=== PATIENT | male | born 1985 | race African-American/Black ===

== ENCOUNTER → 2017-12-14 11:10 | Outpatient (CLI) | payer BC, SELFPAY ==
[2017-12-14 12:06] LABS: Add Manual Diff / Slide Review NO; Basophils Percent Auto 0.3 % (0-2); Eosinophils Percent Auto 1.2 % (2-4); Hematocrit 44.1 % (41-53); Hemoglobin 15.6 g/dL (13.5-17.5); Lymphocytes Percent Auto 29.6 % (25-40); Mean Corpuscular HGB Conc 35.4 % (30-36); Mean Corpuscular Hemoglobin 30.2 PG (26-34); Mean Corpuscular Volume 85.2 fL (80-100); Monocytes Percent Auto 10.3 % (3-14); Neutrophils Absolute Auto 3200 /uL (3000-5900); Neutrophils Percent Auto 58.6 % (50-75); Platelet Count 266 X10^3/uL (150-400); Red Blood Cell Count 5.18 X10^6/uL (4.5-5.9); Red Cell Distribution Width 13.8 % (11.6-14.8); White Blood Cell Count 5.4 X10^3/uL (4.5-11.0)
[2017-12-14 12:23] LABS: Alanine Aminotransferase 76 IU/L (21-72); Albumin 5.1 g/dL (3.5-5.0); Albumin Globulin Ratio 1.5 (1.0-2.8); Alkaline Phosphatase 58 U/L (38-126); Aspartate Aminotransferase 42 IU/L (17-59); BUN Creatinine Ratio 15.6 (6-22); Bilirubin Total 0.9 mg/dL (0.2-1.3); Blood Urea Nitrogen 14 mg/dL (9-20); Calcium 10.3 mg/dL (8.4-10.2); Carbon Dioxide 27 mmol/L (22-32); Chloride 101 mmol/L (98-107); Cholesterol 274 mg/dL (140-199); Estimated Glomerular Filt Rate > 60.0 mL/min (>60); Globulin 3.3 g/dL (1.7-4.1); Glucose 93 mg/dL (70-100); HDL Cholesterol 62 mg/dL (40-60); HEMOLYSIS 17 (0-50); LDL Cholesterol Calculated 200 mg/dL (<100); Potassium 4.8 mmol/L (3.4-5.1); Sodium 142 mmol/L (137-145); Total Protein 8.4 g/dL (6.3-8.2); Triglycerides 58 mg/dL (35-150)
== END ==
PROVIDERS: PCP Family Medicine; Visit Provider Nurse Practitioner Family
DX: E78.00 Pure hypercholesterolemia, unspecified (principal)
CPT/HCPCS: 36415; 80053; 80061; 83036; 85025

== ENCOUNTER → 2018-04-03 07:25 | Outpatient (CLI) | payer BC, SELFPAY ==
[2018-04-03 08:52] LABS: Alanine Aminotransferase 66 IU/L (21-72); Albumin 4.8 g/dL (3.5-5.0); Albumin Globulin Ratio 1.4 (1.0-2.8); Alkaline Phosphatase 66 U/L (38-126); Aspartate Aminotransferase 44 IU/L (17-59); Bilirubin Total 0.9 mg/dL (0.2-1.3); Blood Urea Nitrogen 16 mg/dL (9-20); Carbon Dioxide 25 mmol/L (22-32); Chloride 102 mmol/L (98-107); Estimated Glomerular Filt Rate > 60.0 mL/min (>60); Globulin 3.5 g/dL (1.7-4.1); Glucose 96 mg/dL (70-100); HEMOLYSIS < 15 (0-50); Potassium 4.1 mmol/L (3.4-5.1); Sodium 139 mmol/L (137-145); Total Protein 8.3 g/dL (6.3-8.2)
[2018-04-03 08:57] LABS: Alanine Aminotransferase 62 IU/L (21-72); Albumin 4.8 g/dL (3.5-5.0); Albumin Globulin Ratio 1.4 (1.0-2.8); Alkaline Phosphatase 65 U/L (38-126); Aspartate Aminotransferase 44 IU/L (17-59); Bilirubin Total 0.9 mg/dL (0.2-1.3); Bilirubin Unconjugated 0.7 mg/dL (0.0-1.1); Cholesterol 226 mg/dL (140-199); Globulin 3.5 g/dL (1.7-4.1); HDL Cholesterol 45 mg/dL (40-60); HEMOLYSIS < 15 (0-50); LDL Cholesterol Calculated 162 mg/dL (<100); Total Protein 8.3 g/dL (6.3-8.2); Triglycerides 93 mg/dL (35-150)
[2018-04-03 09:07] LABS: Vitamin D 25 Hydroxy (D3) 29.2 ng/mL (30.0-100.0)
== END ==
PROVIDERS: Student in an Organized Health Care Education/Training Program; PCP Family Medicine; Visit Provider Family Medicine
DX: E55.9 Vitamin D deficiency, unspecified (principal); E78.5 Hyperlipidemia, unspecified; Z79.899 Other long term (current) drug therapy
CPT/HCPCS: 36415; 80053; 80061; 80076; 82306

== ENCOUNTER → 2018-04-13 09:23 | Outpatient (CLI) | payer BC, SELFPAY ==
--- NOTE | 2018-04-13 10:42 | PM.TREADMILL ---
Cardiac Stress Test Report Referral & Results Date Patient Seen: 04/13/18 Requesting provider: Nathaly Collado Indication: Chest pain, strong family history Rest ECG: Unremarkable Procedure Note: Today following both written and verbal informed consent, the patient was exercised according to a standard [facility]dal[facility] protocol. The patient exercised for a total of 14 min 3 sec achieving a maximum heart rate of 200. Patient's maximum systolic blood pressure was 220. This was an estimated 14.8 MET's. There are no ST segment changes Patient was somewhat quickly hypertensive but did not peak at hypertensive number Normal heart rate response to exercise Functional aerobic impairment rated-5% on the active scale Rare PVC identified in recovery Impression: No evidence of ischemia Better than average exercise capacity Suggested patient continue with primary prevention of coronary artery disease Please note: Actual ECG tracings can be found in the PACS system.
== END ==
PROVIDERS: Family Provider Family Medicine; PCP Family Medicine; Visit Provider Family Medicine
DX: R07.9 Chest pain, unspecified (principal); Z82.49 Family history of ischemic heart disease and other diseases of the circulatory system
CPT/HCPCS: 93016; 93017; 93018

== ENCOUNTER → 2018-10-25 13:03 | Outpatient (CLI) | payer BC, SELFPAY ==
[2018-10-25 13:34] LABS: Add Manual Diff / Slide Review NO; Basophils Absolute Auto 0 /uL (0-100); Basophils Percent Auto 0.3 % (0-2); Eosinophils Absolute Auto 100 /uL (0-450); Eosinophils Percent Auto 0.9 % (2-4); Hemoglobin 14.9 g/dL (13.5-17.5); Lymphocytes Absolute Auto 1600 /uL (1100-4500); Lymphocytes Percent Auto 22.3 % (25-40); Mean Corpuscular HGB Conc 34.7 % (30-36); Mean Corpuscular Hemoglobin 29.9 PG (26-34); Mean Corpuscular Volume 86.1 fL (80-100); Monocytes Absolute Auto 600 /uL (0-900); Monocytes Percent Auto 8.8 % (3-14); Neutrophils Absolute Auto 4700 /uL (1500-7000); Neutrophils Percent Auto 67.7 % (50-75); Platelet Count 266 X10^3/uL (150-400); Red Blood Cell Count 4.99 X10^6/uL (4.5-5.9); Red Cell Distribution Width 13.9 % (11.6-14.8)
[2018-10-25 13:55] LABS: Erythrocyte Sedimentation Rate 5 MM/HR (0-15)
[2018-10-25 13:57] LABS: Alanine Aminotransferase 48 IU/L (21-72); Albumin 4.8 g/dL (3.5-5.0); Albumin Globulin Ratio 1.6 (1.0-2.8); Alkaline Phosphatase 54 U/L (38-126); Aspartate Aminotransferase 34 IU/L (17-59); BUN Creatinine Ratio 15.6 (6-22); Blood Urea Nitrogen 14 mg/dL (9-20); Calcium 10.1 mg/dL (8.4-10.2); Carbon Dioxide 29 mmol/L (22-32); Chloride 98 mmol/L (98-107); Cholesterol 249 mg/dL (140-199); Estimated Glomerular Filt Rate > 60.0 mL/min (>60); Glucose 86 mg/dL (70-100); HDL Cholesterol 55 mg/dL (40-60); HEMOLYSIS < 15 (0-50); LDL Cholesterol Calculated 160 mg/dL (<100); Potassium 4.1 mmol/L (3.4-5.1); Sodium 138 mmol/L (137-145); Total Protein 7.8 g/dL (6.3-8.2); Triglycerides 168 mg/dL (35-150)
== END ==
PROVIDERS: Hospitalist; PCP Family Medicine; Visit Provider Family Medicine
DX: E78.5 Hyperlipidemia, unspecified (principal); R07.9 Chest pain, unspecified; R10.9 Unspecified abdominal pain; Z82.49 Family history of ischemic heart disease and other diseases of the circulatory system
CPT/HCPCS: 36415; 80053; 80061; 85025; 85651

== ENCOUNTER → 2021-07-28 10:47 | Outpatient (CLI) | payer BC, SELFPAY ==
[2021-07-28 12:43] LABS: Add Manual Diff / Slide Review NO; Basophils Absolute Auto 0 /uL (0-100); Basophils Percent Auto 0.5 % (0-2); Eosinophils Absolute Auto 100 /uL (0-450); Eosinophils Percent Auto 1.2 % (2-4); Hematocrit 45.2 % (41-53); Hemoglobin 15.4 g/dL (13.5-17.5); Lymphocytes Absolute Auto 1100 /uL (1100-4500); Mean Corpuscular Volume 88.3 fL (80-100); Monocytes Absolute Auto 500 /uL (0-900); Neutrophils Absolute Auto 4900 /uL (1500-7000); Neutrophils Percent Auto 74.3 % (50-75); Platelet Count 266 X10^3/uL (150-400); Red Blood Cell Count 5.12 X10^6/uL (4.5-5.9); Red Cell Distribution Width 13.6 % (11.6-14.8); White Blood Cell Count 6.6 X10^3/uL (4.5-11.0)
[2021-07-28 13:01] LABS: Alanine Aminotransferase 35 IU/L (<50); Albumin 4.9 g/dL (3.5-5.0); Albumin Globulin Ratio 1.4 (1.0-2.8); Alkaline Phosphatase 51 U/L (38-126); Aspartate Aminotransferase 37 IU/L (17-59); BUN Creatinine Ratio 18.3 (6-22); Bilirubin Total 0.9 mg/dL (0.2-1.3); Blood Urea Nitrogen 17 mg/dL (9-20); Calcium 9.8 mg/dL (8.4-10.2); Carbon Dioxide 31 mmol/L (22-32); Chloride 100 mmol/L (98-107); Cholesterol 272 mg/dL (140-199); Estimated Glomerular Filt Rate > 60 mL/min (>60); Globulin 3.5 g/dL (1.7-4.1); Glucose 90 mg/dL (70-100); HDL Cholesterol 65 mg/dL (40-60); HEMOLYSIS 18 (0-50); LDL Cholesterol Calculated 179 mg/dL (<100); Potassium 4.4 mmol/L (3.4-5.1); Sodium 137 mmol/L (137-145); Total Protein 8.4 g/dL (6.3-8.2); Triglycerides 138 mg/dL (35-150)
[2021-07-28 13:38] LABS: HIV 1 & 2 Ab/Ag 4th Gen Combo NEGATIVE (NEGATIVE)
[2021-07-28 14:31] LABS: Urine N gonorrhoeae NOT DETECTED
[2021-07-28 14:39] LABS: Urine Chlamydia NOT DETECTED
== END ==
PROVIDERS: PCP Family Medicine; Referring Provider Family Medicine; Visit Provider Family Medicine
DX: Z72.51 High risk heterosexual behavior (principal); E78.5 Hyperlipidemia, unspecified; I10 Essential (primary) hypertension
CPT/HCPCS: 36415; 80053; 80061; 85025; 87389; 87491; 87591

== ENCOUNTER → 2021-12-22 13:24 | Outpatient (CLI) | payer BC, SELFPAY ==
--- NOTE | 2021-12-22 13:26 | DI.MRI.S_ITS ---
PROCEDURE: MR KNEE LT WO CON INDICATIONS: Left knee pain TECHNIQUE: Noncontrast sagittal PD fast spin echo and T2 fast spin echo with fat saturation, sagittal 3-D FLASH with fat saturation; coronal T1 spin echo and PD fast spin echo with fat saturation, and axial PD fast spin echo with fat saturation through the knee. COMPARISON: None. FINDINGS: Image quality: Excellent. Menisci: Subtle signal involving posterior horn of medial meniscus is seen extending to inferior articulating surface concerning for very subtle oblique tear. Lateral meniscus is intact. abnormality The meniscal root ligaments appear intact. Cruciate ligaments: The anterior and posterior cruciate ligaments appear intact. Medial structures: The medial collateral ligament appears intact. The posterior oblique ligament, semimembranosus tendon insertions, oblique popliteal ligament, and meniscocapsular junction appear intact. Visualized portions of the pes anserinus tendons appear normal. No abnormal bursal fluid. Lateral structures: The lateral collateral ligament, long and short heads of the biceps femoris tendon appear intact. The popliteus tendon appears normal; the popliteofibular ligament appears intact. Iliotibial band appears normal. Anterior structures: The quadriceps and patellar tendons appear intact. Patellar alignment is normal. No femoral trochlear dysplasia or ventral trochlear prominence. No edema in the infrapatellar fat pad. Bones and cartilage: No bone marrow contusions or fractures. The cartilage of the medial and lateral femorotibial compartments, as well as the patellofemoral compartment, appears normal in thickness. Joint space: There is small knee joint fluid. No Hernandez's cyst. Normal appearing synovial plicae are incidentally noted. IMPRESSION: 1. Finding is concerning for subtle oblique tear involving posterior horn of medial meniscus extending to inferior articulating surface. No lateral meniscal tear. 2. Cruciate ligaments are intact. Medial and lateral collateral ligaments are grossly intact. 3. No marrow edema. No fracture or dislocation. Articulating cartilages are intact. Trace joint effusion, no gross loose bodies. Dictated by: Kvng Wagenr M.D. on 12/22/2021 at 16:46 Approved by: Kvng Wagner M.D. on 12/22/2021 at 16:48
== END ==
PROVIDERS: Family Provider Family Medicine; PCP Family Medicine; Referring Provider Family Medicine; Visit Provider Family Medicine
DX: M25.562 Pain in left knee (principal); G89.29 Other chronic pain; R26.2 Difficulty in walking, not elsewhere classified
CPT/HCPCS: 73721

== ENCOUNTER 2021-12-31 09:00 | Outpatient (RCR) | payer BC, SELFPAY ==
--- NOTE | 2021-08-04 18:31 | PT.OIE ---
Current Diagnoses Other chronic pain (08/04/21) Pain in left knee (08/04/21) Past Medical History (Last Updated 07/28/21 @ 13:28 by Bernard López DO) Chronic pain of left knee Chronic rhinitis Cystic acne Essential hypertension Gastroesophageal reflux disease without esophagitis (08/28/15) Hyperlipidemia (08/28/15) Lactose intolerance Pure hypercholesterolemia (08/28/15) Past Surgical History (Last Reviewed 10/25/18 @ 17:03 by Holli Mcdaniel MD) Status post hernia repair Visit Care Team Role Provider Type Bernard López DO Attending Provider Physician Family Provider Primary Care Provider Referring Provider Specialty: [facility] Address: [address] [place] [address], [facility] Email: Physical Therapy Initial Evaluation PT-OP-A Visit Information Start: 08/04/21 11:45 Freq: Status: Active Protocol: Document 08/04/21 16:53 [facility] (Rec: 08/04/21 18:31 [facility] [id number]) Out-Patient Physical Therapy Visit Information Visit Information Visit Type Initial Evaluation Visit Start Time 16:50 Visit Stop Time 17:40 Total Visit Minutes 50 Visit Number 1 Number of [employer] Visits 0 PT-OP-B Current Condition Start: 08/04/21 11:45 Freq: Status: Active Protocol: Document 08/04/21 16:53 [facility] (Rec: 08/04/21 18:31 [facility] [id number]) Current Condition History of Current Condition Current Complaints L knee pain History of Current Condition Pt reports [place] and his knee was killing him the next day. In May, he was so stiff and painful and couldn't barely move his knee and was sonny up . Pt reports a nusance pain in the back of his knee and has been clicking ant. He is up/ down 10 flights of stairs about 10x/day and has to run/ up/down. Pt reports figure 4 sit aggrevates his knee the most after 20-30 min of sitting. He wonders if hm sitting like that for the plane rides irritated the knee . Pt rides his pelaton pretty often, but hasn't recenlty d/t knee bothering him. Pt started riding in September. Pt denies swelling initially. Pt reprots it's been only the small bouts of time that it is really bad where he can't move it. Pt reports pain was about a 6/10 initially and had to do step to w/stairs for a while. He got back first week of June. that Pt leaves August 28. Pt reports shoulder surgery years ago but otherwise no other issues. Reports LBP that he sees chiro occ for and often LLE is always shorter and is corrected. Treatment Goals Patient/Caregiver Goals run up/down stairs w/o pain, be able to get into odd spots, avoid a catestrophic knee injury PT-OP-C Subjective Start: 08/04/21 11:45 Freq: Status: Active Protocol: Document 08/04/21 16:53 [facility] (Rec: 08/04/21 18:31 [facility] [id number]) Patient Questionnaires Lower Extremity Functional Scale LEFS Score 80 OP-PT Pain Assessment Location L knee Pain Location Details mostly post Intensity 5 Scale Used Numeric (0 - 10) Description Dull,With Movement Frequency Constant Variations/Patterns clicks/pops ant medially Other Pain Aggravating Factors pelaton sometimes, figure 4 sit, can hurt after activity Pain Alleviating Factors Cold,Medication PT-OP-D Balance Start: 08/04/21 11:45 Freq: Status: Active Protocol: Document 08/04/21 16:53 [facility] (Rec: 08/04/21 18:31 [facility] [id number]) Balance Tests Single Limb Standing Single Limb- Right >30 sec Single Limb- Left >30 sec w/lat shear of R hip& slight trunk lean PT-OP-F Manual Assessment Start: 08/04/21 11:45 Freq: Status: Active Protocol: Document 08/04/21 16:53 [facility] (Rec: 08/04/21 18:31 [facility] [id number]) Manual Assessments Soft Tissue Assessment Soft Tissue Mobility Assessment tenderness at one aspect of med jt line L w/heavy palpation, tight HS and calf Joint Mobility Assessment Joint Mobility Assessment R iliac crest higher, PSIS R Post, ER of femur on L>R, IR tibia B, pronated feet B, patella turned out L>R, tracks lat slightly L w/quad engagment, L foot turned out in standing slightly PT-OP-G Mobility & Gait Start: 08/04/21 11:45 Freq: Status: Active Protocol: Document 08/04/21 16:53 [facility] (Rec: 08/04/21 18:31 [facility] [id number]) OP Gait Assessment Comments Gait Comments pt has dec ant depression and post dep L side, inc trunk lat lean w/WB on LLE PT-OP-J Posture/Palpation/Skin Start: 08/04/21 11:45 Freq: Status: Active Protocol: Document 08/04/21 16:53 [facility] (Rec: 08/04/21 18:31 [facility] [id number]) Posture Evaluation [facility] Postural Classification System Lumbar Protective Mechanism Left AP 1 Lumbar Protective Mechanism Right AP 1 Lumbar Protective Mechanism Left PA 2 Lumbar Protective Mechanism Right PA 2 PT-OP-K Range of Motion Start: 08/04/21 11:45 Freq: Status: Active Protocol: Document 08/04/21 16:53 [facility] (Rec: 08/04/21 18:31 [facility] [id number]) Knee Goniometric Range of Motion Knee Right Flexion Active (degrees) 130 Extension Active (degrees) 0 Left Flexion Active (degrees) 126 Extension Active (degrees) 0 Comments discomfort w/flex ant med PT-OP-L Special Tests Start: 08/04/21 11:45 Freq: Status: Active Protocol: Document 08/04/21 16:53 [facility] (Rec: 08/04/21 18:31 [facility] [id number]) Special Tests Knee Special Tests Lilli Test Test Results neg no pain w/ext testing Vanessa's Test Results neg L Posterior Draw Test Results neg L Caesar Test Results B hip flexor & TFL moderate tightness, B mild quad tightness Straight Leg Raise Test Results about 70 deg B but starts feeling tightness around 45 deg on L Comments inc tightness w/DF B, dec tightness w/cervical flex Thessaly Test 20 Degrees Test Results neg L Thessaly Test 5 Degrees Test Results neg L Juan M's Test Test Results mild tightness Varus- 25 Degrees Test Results neg Valgus- 25 Degrees Test Results neg PT-OP-M Strength Start: 08/04/21 11:45 Freq: Status: Active Protocol: Document 08/04/21 16:53 [facility] (Rec: 08/04/21 18:31 [facility] [id number]) Hip Strength Hip Manual Muscle Testing Right Flexion (L2) 5 Normal Extension (S1) 5 Normal Abduction 5 Normal Adduction 5 Normal External Rotation 5 Normal Internal Rotation 5 Normal Left Flexion (L2) 4 Good Extension (S1) 5 Normal Abduction 5 Normal Adduction 5 Normal External Rotation 4- Good- Internal Rotation 4- Good- Comments pain w/rots; dec trunk stability w/hip ext testing Knee Strength Knee Manual Muscle Testing Right Flexion (S2) 5 Normal Extension (L3) 5 Normal Left Flexion (S2) 4 Good Extension (L3) 5 Normal Comments pain flex Ankle/Foot Strength Ankle and Foot Manual Muscle Testing Right Dorsiflexion (L4) 5 Normal Plantarflexion (S1) 5 Normal Left Dorsiflexion (L4) 5 Normal Plantarflexion (S1) 5 Normal Comments 20 heel raises B PT-OP-Q Treatments Start: 08/04/21 11:45 Freq: Status: Active Protocol: Document 08/04/21 16:53 [facility] (Rec: 08/04/21 18:31 [facility] [id number]) Self-Care/Home Management Treatment Education Other Education edu for doing calf stretch on step x30 sec and doing quad set into HS stretch on doorway w/pillow behind knee 10 sec hold then rest and repeat, edu re: findings re: subjective is consistant w/meniscus tear and the mild jt line tenderness could be indicitive of possible meniscus pathology, but no testingw as positive. He does have pelvis height discrepency which hew as educated on how this could be affecitng his landing mechanics and inc his pain. PT-OP-T Assessment and Plan Start: 08/04/21 11:45 Freq: Status: Active Protocol: Document 08/04/21 16:53 [facility] (Rec: 08/04/21 18:31 [facility] [id number]) Physical Therapy Assessment Rehab Potential Rehabilitation Potential Good Evaluation Complexity Number of Personal Factors/Comorbidities 1-2 Number of Body Systems Impaired 4 or More Clinical Presentation at Evaluation Stable Impairments Impairments Activity Tolerance,Balance, Functional Activities, Functional Mobility,Gait,Pain, Posture,ROM,Soft Tissue Mobility,Strength Goals balance Customer Supply Chain Analyst Goal (LTG) pt will be able to do SLS on LLE w/o lat lean or shear . LTG Duration 09/04/21 strength Short Term Goal (STG) Pt will be indep w/hEP STG Duration 08/17/21 Customer Supply Chain Analyst Goal (LTG) Pt will have at least 4/5 on LPM in all planes and 5/5 MMT w/rotations and hip flex w/o pain. LTG Duration 09/04/21 pain Fci Goal (LTG) Pt will report no knee pain w/ his typical activties including running, going up steps 2 at a time, jumping and sitting in figure 4 position LTG Duration 09/04/21 Assessment Summary Assessment Pt presents w/L knee pain that started in Apr w/o known causes besides travelling for 7 hours by plane in which he notes sitting in figure 4 position for extended time and since this now inc his pain, he believes this may have contributed to his pain starting. He has no history of knee pain, but does have history of back pain and leg length issues which he has seen a chiropractor for in the past. 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 He had dec stability on LLE in SLS w/ lat hip shear consistant w/his gait mechanics. He has ER of femur and that causes Er of patella likely contributing to pain. He would bneefit from skilled PT to work on mechanics of LLE to dec pain and imrpove function. Physical Therapy Plan Frequency and Duration Frequency of Treatment 2x/Week Duration of Treatment 1 month Plan of Care Start Date 08/04/21 Plan of Care End Date 09/04/21 Therapeutic Interventions Therapeutic Interventions Aquatic Therapy,Balance Training,Gait Training,Home Exercise Program,Joint Mobilizations,Manual Therapy, Neuromuscular Re-education, Patient/Caregiver Education, Self-Care/Home Management,Soft Tissue Mobilization,Taping, Therapeutic Activities, Therapeutic Exercises Modalities Cold Pack/Ice Massage,Electric Stimulation,Hot Packs, Infrared Therapy,Ultrasound Next Visit Focus/Plan Next Visit Plan circumfrential release of HS & calf, hip on axis, asses hip flex, innominate mobility, PNF ant & post dep, teach quad/ hip flexor stretch, SLS for HEP & squat and lunge
--- NOTE | 2021-08-04 18:31 | PT.OPPOC ---
Physical, Occupational & Speech Therapy At [facility] Current Diagnoses Other chronic pain (08/04/21) Pain in left knee (08/04/21) Visit Care Team Role Provider Type Bernard López DO Attending Provider Physician Family Provider Primary Care Provider Referring Provider Specialty: Family Practice Address: [address] [place] [address], [facility] Email: Plan Of Care PT-OP-T Assessment and Plan Start: 08/04/21 11:45 Freq: Status: Active Protocol: Document 08/04/21 16:53 [facility] (Rec: 08/04/21 18:31 [facility] [id number]) Physical Therapy Assessment Rehab Potential Rehabilitation Potential Good Evaluation Complexity Number of Personal Factors/Comorbidities 1-2 Number of Body Systems Impaired 4 or More Clinical Presentation at Evaluation Stable Impairments Impairments Activity Tolerance,Balance, Functional Activities, Functional Mobility,Gait,Pain, Posture,ROM,Soft Tissue Mobility,Strength Goals balance Intermediate Goal (LTG) pt will be able to do SLS on LLE w/o lat lean or shear . LTG Duration 09/04/21 strength Short Term Goal (STG) Pt will be indep w/hEP STG Duration 08/17/21 Intermediate Goal (LTG) Pt will have at least 4/5 on LPM in all planes and 5/5 MMT w/rotations and hip flex w/o pain. LTG Duration 09/04/21 pain Intermediate Goal (LTG) Pt will report no knee pain w/ his typical activties including running, going up steps 2 at a time, jumping and sitting in figure 4 position LTG Duration 09/04/21 Assessment Summary Assessment Pt presents w/L knee pain that started in Apr w/o known causes besides travelling for 7 hours by plane in which he notes sitting in figure 4 position for extended time and since this now inc his pain, he believes this may have contributed to his pain starting. He has no history of knee pain, but does have history of back pain and leg length issues which he has seen a chiropractor for in the past. 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 He had dec stability on LLE in SLS w/ lat hip shear consistant w/his gait mechanics. He has ER of femur and that causes Er of patella likely contributing to pain. He would bneefit from skilled PT to work on mechanics of LLE to dec pain and imrpove function. Physical Therapy Plan Frequency and Duration Frequency of Treatment 2x/Week Duration of Treatment 1 month Plan of Care Start Date 08/04/21 Plan of Care End Date 09/04/21 Therapeutic Interventions Therapeutic Interventions Aquatic Therapy,Balance Training,Gait Training,Home Exercise Program,Joint Mobilizations,Manual Therapy, Neuromuscular Re-education, Patient/Caregiver Education, Self-Care/Home Management,Soft Tissue Mobilization,Taping, Therapeutic Activities, Therapeutic Exercises Modalities Cold Pack/Ice Massage,Electric Stimulation,Hot Packs, Infrared Therapy,Ultrasound Next Visit Focus/Plan Next Visit Plan circumfrential release of HS & calf, hip on axis, asses hip flex, innominate mobility, PNF ant & post dep, teach quad/ hip flexor stretch, SLS for HEP & squat and lunge Plan of Care Dates Plan of Care Start Date 08/04/21 Plan of Care End Date 09/04/21 Electronically Signed by: Fannie Sinclair, PT 08/04/21 [id number] If you are in agreement with this Plan of Care, please return a signed and dated copy. I have reviewed this Plan of Care and certify that the skilled therapy services above are required to meet the patient?s needs. Physician Signature Date Printed Name and Credentials Clinical Instructor Signature Printed Name and Credentials
--- NOTE | 2021-08-06 18:17 | PT.OTN ---
Current Diagnoses Other chronic pain (08/06/21) Pain in left knee (08/06/21) Physical Therapy Treatment Note PT-OP-A Visit Information Start: 08/04/21 11:45 Freq: Status: Active Protocol: Document 08/06/21 16:04 [facility] (Rec: 08/06/21 18:17 [facility] [id number]) Out-Patient Physical Therapy Visit Information Visit Information Visit Type Treatment Note Visit Start Time 16:50 Visit Stop Time 17:30 Total Visit Minutes 40 Visit Number 2 Number of EDUCATION NURSE Visits 0 PT-OP-B Current Condition Start: 08/04/21 11:45 Freq: Status: Active Protocol: Document 08/04/21 16:53 [facility] (Rec: 08/04/21 18:31 [facility] [id number]) Current Condition History of Current Condition Current Complaints L knee pain History of Current Condition Pt reports [place] and his knee was killing him the next day. In May, he was so stiff and painful and couldn't barely move his knee and was sonny up . Pt reports a nusance pain in the back of his knee and has been clicking ant. He is up/ down 10 flights of stairs about 10x/day and has to run/ up/down. Pt reports figure 4 sit aggrevates his knee the most after 20-30 min of sitting. He wonders if hm sitting like that for the plane rides irritated the knee . Pt rides his pelaton pretty often, but hasn't recenlty d/t knee bothering him. Pt started riding in September. Pt denies swelling initially. Pt reprots it's been only the small bouts of time that it is really bad where he can't move it. Pt reports pain was about a 6/10 initially and had to do step to w/stairs for a while. He got back first week of June. that Pt leaves August 28. Pt reports shoulder surgery years ago but otherwise no other issues. Reports LBP that he sees chiro occ for and often LLE is always shorter and is corrected. Treatment Goals Patient/Caregiver Goals run up/down stairs w/o pain, be able to get into odd spots, avoid a catestrophic knee injury PT-OP-C Subjective Start: 08/04/21 11:45 Freq: Status: Active Protocol: Document 08/06/21 16:04 [facility] (Rec: 08/06/21 18:17 [facility] [id number]) OP-PT Subjective Patient Comments Patient Comments pt saw chiro today who worked on hips and did laser on knee PT-OP-D Balance Start: 08/04/21 11:45 Freq: Status: Active Protocol: Document 08/04/21 16:53 [facility] (Rec: 08/04/21 18:31 [facility] [id number]) Balance Tests Single Limb Standing Single Limb- Right >30 sec Single Limb- Left >30 sec w/lat shear of R hip& slight trunk lean PT-OP-F Manual Assessment Start: 08/04/21 11:45 Freq: Status: Active Protocol: Document 08/04/21 16:53 [facility] (Rec: 08/04/21 18:31 [facility] [id number]) Manual Assessments Soft Tissue Assessment Soft Tissue Mobility Assessment tenderness at one aspect of med jt line L w/heavy palpation, tight HS and calf Joint Mobility Assessment Joint Mobility Assessment R iliac crest higher, PSIS R Post, ER of femur on L>R, IR tibia B, pronated feet B, patella turned out L>R, tracks lat slightly L w/quad engagment, L foot turned out in standing slightly PT-OP-G Mobility & Gait Start: 08/04/21 11:45 Freq: Status: Active Protocol: Document 08/04/21 16:53 [facility] (Rec: 08/04/21 18:31 [facility] [id number]) OP Gait Assessment Comments Gait Comments pt has dec ant depression and post dep L side, inc trunk lat lean w/WB on LLE PT-OP-J Posture/Palpation/Skin Start: 08/04/21 11:45 Freq: Status: Active Protocol: Document 08/04/21 16:53 [facility] (Rec: 08/04/21 18:31 [facility] [id number]) Posture Evaluation [facility] Postural Classification System Lumbar Protective Mechanism Left AP 1 Lumbar Protective Mechanism Right AP 1 Lumbar Protective Mechanism Left PA 2 Lumbar Protective Mechanism Right PA 2 PT-OP-K Range of Motion Start: 08/04/21 11:45 Freq: Status: Active Protocol: Document 08/04/21 16:53 [facility] (Rec: 08/04/21 18:31 [facility] [id number]) Knee Goniometric Range of Motion Knee Right Flexion Active (degrees) 130 Extension Active (degrees) 0 Left Flexion Active (degrees) 126 Extension Active (degrees) 0 Comments discomfort w/flex ant med PT-OP-L Special Tests Start: 08/04/21 11:45 Freq: Status: Active Protocol: Document 08/04/21 16:53 [facility] (Rec: 08/04/21 18:31 [facility] [id number]) Special Tests Knee Special Tests Lilli Test Test Results neg no pain w/ext testing Vanessa's Test Results neg L Posterior Draw Test Results neg L Caesar Test Results B hip flexor & TFL moderate tightness, B mild quad tightness Straight Leg Raise Test Results about 70 deg B but starts feeling tightness around 45 deg on L Comments inc tightness w/DF B, dec tightness w/cervical flex Thessaly Test 20 Degrees Test Results neg L Thessaly Test 5 Degrees Test Results neg L Juan M's Test Test Results mild tightness Varus- 25 Degrees Test Results neg Valgus- 25 Degrees Test Results neg PT-OP-M Strength Start: 08/04/21 11:45 Freq: Status: Active Protocol: Document 08/04/21 16:53 [facility] (Rec: 08/04/21 18:31 [facility] [id number]) Hip Strength Hip Manual Muscle Testing Right Flexion (L2) 5 Normal Extension (S1) 5 Normal Abduction 5 Normal Adduction 5 Normal External Rotation 5 Normal Internal Rotation 5 Normal Left Flexion (L2) 4 Good Extension (S1) 5 Normal Abduction 5 Normal Adduction 5 Normal External Rotation 4- Good- Internal Rotation 4- Good- Comments pain w/rots; dec trunk stability w/hip ext testing Knee Strength Knee Manual Muscle Testing Right Flexion (S2) 5 Normal Extension (L3) 5 Normal Left Flexion (S2) 4 Good Extension (L3) 5 Normal Comments pain flex Ankle/Foot Strength Ankle and Foot Manual Muscle Testing Right Dorsiflexion (L4) 5 Normal Plantarflexion (S1) 5 Normal Left Dorsiflexion (L4) 5 Normal Plantarflexion (S1) 5 Normal Comments 20 heel raises B PT-OP-Q Treatments Start: 08/04/21 11:45 Freq: Status: Active Protocol: Document 08/06/21 16:04 [facility] (Rec: 08/06/21 18:17 [facility] [id number]) Therapeutic Exercises Standing Exercises gait at wall Side bilateral Reps/Minutes 10sec x2 quad stretch Standing Exercise Name w/glute activation Side bilateral Reps/Minutes 10sec x3 staying in hold SL Standing Exercise Name w/alt march Side left Comments in mirror focus on hip lunge Side bilateral Reps/Minutes 10 Comments cues for no lat shear of L hip squat Side bilateral Reps/Minutes 15 Comments cues for control & knee position Manual Therapy Treatment Soft Tissue Mobilization quad Body Location L & circumfrential Mobilization Type Rolling,Strumming Intensity/Depth Moderate Comments in caesar test position calf Body Location L Mobilization Type Myofascial Release,Rolling, Strumming Intensity/Depth Moderate Comments APs HS Body Location L med mostly & circumfrential Mobilization Type Myofascial Release,Rolling, Strumming Intensity/Depth Superficial Comments active HS stretch Joint Mobilizations sacrum Joint L Direction UPA FM innominate Joint L Direction IR FM hip Joint L on axis IR FM PT-OP-T Assessment and Plan Start: 08/04/21 11:45 Freq: Status: Active Protocol: Document 08/06/21 16:04 [facility] (Rec: 08/06/21 18:17 [facility] [id number]) Physical Therapy Assessment Goals balance Group Home Goal (LTG) pt will be able to do SLS on LLE w/o lat lean or shear . LTG Duration 09/04/21 strength Short Term Goal (STG) Pt will be indep w/hEP STG Duration 08/17/21 Group Home Goal (LTG) Pt will have at least 4/5 on LPM in all planes and 5/5 MMT w/rotations and hip flex w/o pain. LTG Duration 09/04/21 pain Group Home Goal (LTG) Pt will report no knee pain w/ his typical activties including running, going up steps 2 at a time, jumping and sitting in figure 4 position LTG Duration 09/04/21 Assessment Summary Assessment Pt had improved IR w/ mobilizations and improved quad mobility after manual, which will hopefully dec load and pain on knee. He did well with exercises but did require cues for no lat shear of L hip in uni exercises and posture Physical Therapy Plan Frequency and Duration Frequency of Treatment 2x/Week Duration of Treatment 1 month Plan of Care Start Date 08/04/21 Plan of Care End Date 09/04/21 Next Visit Focus/Plan Next Note Type Treatment Note Next Visit Plan review exercises, assess hip flex, PNF, hip abd & ext innominate mobility
--- NOTE | 2021-08-11 15:55 | PT-OP ANOTE ---
pt called re: no show and he noted he forgot and didn't see a text reminder about the appointment. He apologized re: no show. Informed of next 2 appts.
--- NOTE | 2021-08-20 12:12 | PT.OTN ---
Current Diagnoses Other chronic pain (08/20/21) Pain in left knee (08/20/21) Physical Therapy Treatment Note PT-OP-A Visit Information Start: 08/04/21 11:45 Freq: Status: Active Protocol: Document 08/20/21 09:01 [facility] (Rec: 08/20/21 09:46 AW [id number]) Out-Patient Physical Therapy Visit Information Visit Information Visit Type Treatment Note Visit Start Time 09:01 Visit Stop Time 09:43 Total Visit Minutes 42 Visit Number 3 Number of JIG BORE OPERATOR Visits 0 PT-OP-B Current Condition Start: 08/04/21 11:45 Freq: Status: Active Protocol: Document 08/04/21 16:53 [facility] (Rec: 08/04/21 18:31 [facility] [id number]) Current Condition History of Current Condition Current Complaints L knee pain History of Current Condition Pt reports he [place] to the [place] Apr 27 and his knee was killing him the next day. In May, he was so stiff and painful and couldn't barely move his knee and was sonny up . Pt reports a nusance pain in the back of his knee and has been clicking ant. He is up/ down 10 flights of stairs about 10x/day and has to run/ up/down. Pt reports figure 4 sit aggrevates his knee the most after 20-30 min of sitting. He wonders if hm sitting like that for the plane rides irritated the knee . Pt rides his pel[place] pretty often, but hasn't recenlty d/t knee bothering him. Pt started riding in September. Pt denies swelling initially. Pt reprots it's been only the small bouts of time that it is really bad where he can't move it. Pt reports pain was about a 6/10 initially and had to do step to w/stairs for a while. He got back first week of June. that Pt leaves August 28. Pt reports shoulder surgery years ago but otherwise no other issues. Reports LBP that he sees chiro occ for and often LLE is always shorter and is corrected. Treatment Goals Patient/Caregiver Goals run up/down stairs w/o pain, be able to get into odd spots, avoid a catestrophic knee injury PT-OP-C Subjective Start: 08/04/21 11:45 Freq: Status: Active Protocol: Document 08/20/21 09:01 [facility] (Rec: 08/20/21 09:46 AW [id number]) OP-PT Subjective Patient Comments Patient Comments Pt has been super active the past few weeks so symptoms have been slightly worse. Had massage yesterday. Still feels a pop in the front of the knee and pain behind the knee - often during transition from sit to stand, sometimes while walking PT-OP-D Balance Start: 08/04/21 11:45 Freq: Status: Active Protocol: Document 08/04/21 16:53 [facility] (Rec: 08/04/21 18:31 [facility] [id number]) Balance Tests Single Limb Standing Single Limb- Right >30 sec Single Limb- Left >30 sec w/lat shear of R hip& slight trunk lean PT-OP-F Manual Assessment Start: 08/04/21 11:45 Freq: Status: Active Protocol: Document 08/04/21 16:53 [facility] (Rec: 08/04/21 18:31 [facility] [id number]) Manual Assessments Soft Tissue Assessment Soft Tissue Mobility Assessment tenderness at one aspect of med jt line L w/heavy palpation, tight HS and calf Joint Mobility Assessment Joint Mobility Assessment R iliac crest higher, PSIS R Post, ER of femur on L>R, IR tibia B, pronated feet B, patella turned out L>R, tracks lat slightly L w/quad engagment, L foot turned out in standing slightly PT-OP-G Mobility & Gait Start: 08/04/21 11:45 Freq: Status: Active Protocol: Document 08/04/21 16:53 [facility] (Rec: 08/04/21 18:31 [facility] [id number]) OP Gait Assessment Comments Gait Comments pt has dec ant depression and post dep L side, inc trunk lat lean w/WB on LLE PT-OP-J Posture/Palpation/Skin Start: 08/04/21 11:45 Freq: Status: Active Protocol: Document 08/04/21 16:53 [facility] (Rec: 08/04/21 18:31 [facility] [id number]) Posture Evaluation [facility] Postural Classification System Lumbar Protective Mechanism Left AP 1 Lumbar Protective Mechanism Right AP 1 Lumbar Protective Mechanism Left PA 2 Lumbar Protective Mechanism Right PA 2 PT-OP-K Range of Motion Start: 08/04/21 11:45 Freq: Status: Active Protocol: Document 08/04/21 16:53 [facility] (Rec: 08/04/21 18:31 [facility] [id number]) Knee Goniometric Range of Motion Knee Right Flexion Active (degrees) 130 Extension Active (degrees) 0 Left Flexion Active (degrees) 126 Extension Active (degrees) 0 Comments discomfort w/flex ant med PT-OP-L Special Tests Start: 08/04/21 11:45 Freq: Status: Active Protocol: Document 08/04/21 16:53 [facility] (Rec: 08/04/21 18:31 [facility] [id number]) Special Tests Knee Special Tests Lilli Test Test Results neg no pain w/ext testing Vanessa's Test Results neg L Posterior Draw Test Results neg L Caesar Test Results B hip flexor & TFL moderate tightness, B mild quad tightness Straight Leg Raise Test Results about 70 deg B but starts feeling tightness around 45 deg on L Comments inc tightness w/DF B, dec tightness w/cervical flex Thessaly Test 20 Degrees Test Results neg L Thessaly Test 5 Degrees Test Results neg L Juan M's Test Test Results mild tightness Varus- 25 Degrees Test Results neg Valgus- 25 Degrees Test Results neg PT-OP-M Strength Start: 08/04/21 11:45 Freq: Status: Active Protocol: Document 08/04/21 16:53 [facility] (Rec: 08/04/21 18:31 [facility] [id number]) Hip Strength Hip Manual Muscle Testing Right Flexion (L2) 5 Normal Extension (S1) 5 Normal Abduction 5 Normal Adduction 5 Normal External Rotation 5 Normal Internal Rotation 5 Normal Left Flexion (L2) 4 Good Extension (S1) 5 Normal Abduction 5 Normal Adduction 5 Normal External Rotation 4- Good- Internal Rotation 4- Good- Comments pain w/rots; dec trunk stability w/hip ext testing Knee Strength Knee Manual Muscle Testing Right Flexion (S2) 5 Normal Extension (L3) 5 Normal Left Flexion (S2) 4 Good Extension (L3) 5 Normal Comments pain flex Ankle/Foot Strength Ankle and Foot Manual Muscle Testing Right Dorsiflexion (L4) 5 Normal Plantarflexion (S1) 5 Normal Left Dorsiflexion (L4) 5 Normal Plantarflexion (S1) 5 Normal Comments 20 heel raises B PT-OP-Q Treatments Start: 08/04/21 11:45 Freq: Status: Active Protocol: Document 08/20/21 09:01 AW (Rec: 08/20/21 09:46 AW [id number]) Therapeutic Exercises Sitting Exercises long sitting hip flexion Sitting Exercise Name long sitting hip flexion Side left Reps/Minutes up and over bolster back and forth Comments cued quad set, controlled hip flexion static HS stretch Sitting Exercise Name static HS stretch Side left Equipment Used std height chair Comments cued hip hinge, neutral ankle Standing Exercises dynamic warm up Standing Exercise Name dynamic warm up Side bilateral Reps/Minutes walking hip flex, HS stretch, rotation, heel walk, toe walk Comments advised dynamic warm up prior to activity quad stretch Standing Exercise Name w/glute activation Side bilateral Reps/Minutes 30 sec x3 staying in hold SL Standing Exercise Name w/alt march Side left Comments in mirror focus on hip; pt better able to self-correct for shear lunge Side bilateral Reps/Minutes 10 Comments cues for no lat shear of L hip squat Standing Exercise Name near full depth without increase in pain Side bilateral Reps/Minutes 15 Comments cues for control & knee position, glute firing Manual Therapy Treatment Soft Tissue Mobilization quad Body Location L & circumfrential Mobilization Type Rolling,Strumming Intensity/Depth Moderate Comments in caesar test position calf Body Location L Mobilization Type Myofascial Release,Rolling, Strumming Intensity/Depth Moderate Comments APs HS Body Location L med mostly & circumfrential Mobilization Type Myofascial Release,Rolling, Strumming Intensity/Depth Superficial Comments active HS stretch Joint Mobilizations hip Joint L on axis IR FM Self-Care/Home Management Treatment Education Other Education Educated pt on dynamic/active warmup before and static stretches after activity. Educated on need for home exercise to progress, including warm up, stretches, and strengthening. PT-OP-T Assessment and Plan Start: 08/04/21 11:45 Freq: Status: Active Protocol: Document 08/20/21 09:01 AW (Rec: 08/20/21 09:46 AW [id number]) Physical Therapy Assessment Goals balance Half-Way Goal (LTG) pt will be able to do SLS on LLE w/o lat lean or shear . LTG Duration 09/04/21 strength Short Term Goal (STG) Pt will be indep w/hEP STG Duration 08/17/21 Half-Way Goal (LTG) Pt will have at least 4/5 on LPM in all planes and 5/5 MMT w/rotations and hip flex w/o pain. LTG Duration 09/04/21 pain Aboriginal Education Worker Coordinator Goal (LTG) Pt will report no knee pain w/ his typical activties including running, going up steps 2 at a time, jumping and sitting in figure 4 position LTG Duration 09/04/21 Assessment Summary Assessment Educated pt on self-STM for quads, hamstrings, calf to reduce load on left knee. Educated pt extensively on dynamic warm ups prior to activity and benefits of dedicated HEP to improve LLE stength and stability. He was able to self-correct for lateral shear left hip using mirror for feedback today. Physical Therapy Plan Frequency and Duration Frequency of Treatment 2x/Week Duration of Treatment 1 month Plan of Care Start Date 08/04/21 Plan of Care End Date 09/04/21 Therapeutic Interventions Therapeutic Interventions Aquatic Therapy,Balance Training,Gait Training,Home Exercise Program,Joint Mobilizations,Manual Therapy, Neuromuscular Re-education, Patient/Caregiver Education, Self-Care/Home Management,Soft Tissue Mobilization,Taping, Therapeutic Activities, Therapeutic Exercises Modalities Cold Pack/Ice Massage,Electric Stimulation,Hot Packs, Infrared Therapy,Ultrasound Next Visit Focus/Plan Next Note Type Treatment Note
--- NOTE | 2021-08-25 11:16 | PT.OTN ---
Current Diagnoses Other chronic pain (08/25/21) Pain in left knee (08/25/21) Physical Therapy Treatment Note PT-OP-A Visit Information Start: 08/04/21 11:45 Freq: Status: Active Protocol: Document 08/25/21 07:29 [facility] (Rec: 08/25/21 11:16 [facility] [id number]) Out-Patient Physical Therapy Visit Information Visit Information Visit Type Treatment Note Visit Start Time 07:31 Visit Stop Time 08:15 Total Visit Minutes 44 Visit Number 4 Number of DIRECTOR RECORDS MANAGEMENT Visits 0 PT-OP-B Current Condition Start: 08/04/21 11:45 Freq: Status: Active Protocol: Document 08/04/21 16:53 [facility] (Rec: 08/04/21 18:31 [facility] [id number]) Current Condition History of Current Condition Current Complaints L knee pain History of Current Condition Pt reports [place] 27 and his knee was killing him the next day. In May, he was so stiff and painful and couldn't barely move his knee and was sonny up . Pt reports a nusance pain in the back of his knee and has been clicking ant. He is up/ down 10 flights of stairs about 10x/day and has to run/ up/down. Pt reports figure 4 sit aggrevates his knee the most after 20-30 min of sitting. He wonders if hm sitting like that for the plane rides irritated the knee . Pt rides his pelaton pretty often, but hasn't recenlty d/t knee bothering him. Pt started riding in September. Pt denies swelling initially. Pt reprots it's been only the small bouts of time that it is really bad where he can't move it. Pt reports pain was about a 6/10 initially and had to do step to w/stairs for a while. He got back first week of June. that Pt leaves August 28. Pt reports shoulder surgery years ago but otherwise no other issues. Reports LBP that he sees chiro occ for and often LLE is always shorter and is corrected. Treatment Goals Patient/Caregiver Goals run up/down stairs w/o pain, be able to get into odd spots, avoid a catestrophic knee injury PT-OP-C Subjective Start: 08/04/21 11:45 Freq: Status: Active Protocol: Document 08/25/21 07:29 [facility] (Rec: 08/25/21 11:16 [facility] [id number]) OP-PT Subjective Patient Comments Patient Comments pt reports no change PT-OP-D Balance Start: 08/04/21 11:45 Freq: Status: Active Protocol: Document 08/04/21 16:53 [facility] (Rec: 08/04/21 18:31 [facility] [id number]) Balance Tests Single Limb Standing Single Limb- Right >30 sec Single Limb- Left >30 sec w/lat shear of R hip& slight trunk lean PT-OP-F Manual Assessment Start: 08/04/21 11:45 Freq: Status: Active Protocol: Document 08/04/21 16:53 [facility] (Rec: 08/04/21 18:31 [facility] [id number]) Manual Assessments Soft Tissue Assessment Soft Tissue Mobility Assessment tenderness at one aspect of med jt line L w/heavy palpation, tight HS and calf Joint Mobility Assessment Joint Mobility Assessment R iliac crest higher, PSIS R Post, ER of femur on L>R, IR tibia B, pronated feet B, patella turned out L>R, tracks lat slightly L w/quad engagment, L foot turned out in standing slightly PT-OP-G Mobility & Gait Start: 08/04/21 11:45 Freq: Status: Active Protocol: Document 08/04/21 16:53 [facility] (Rec: 08/04/21 18:31 [facility] [id number]) OP Gait Assessment Comments Gait Comments pt has dec ant depression and post dep L side, inc trunk lat lean w/WB on LLE PT-OP-J Posture/Palpation/Skin Start: 08/04/21 11:45 Freq: Status: Active Protocol: Document 08/04/21 16:53 [facility] (Rec: 08/04/21 18:31 [facility] [id number]) Posture Evaluation Abdias Postural Classification System Lumbar Protective Mechanism Left AP 1 Lumbar Protective Mechanism Right AP 1 Lumbar Protective Mechanism Left PA 2 Lumbar Protective Mechanism Right PA 2 PT-OP-K Range of Motion Start: 08/04/21 11:45 Freq: Status: Active Protocol: Document 08/04/21 16:53 [facility] (Rec: 08/04/21 18:31 [facility] [id number]) Knee Goniometric Range of Motion Knee Right Flexion Active (degrees) 130 Extension Active (degrees) 0 Left Flexion Active (degrees) 126 Extension Active (degrees) 0 Comments discomfort w/flex ant med PT-OP-L Special Tests Start: 08/04/21 11:45 Freq: Status: Active Protocol: Document 08/04/21 16:53 [facility] (Rec: 08/04/21 18:31 [facility] [id number]) Special Tests Knee Special Tests Lilli Test Test Results neg no pain w/ext testing Vanessa's Test Results neg L Posterior Draw Test Results neg L Caesar Test Results B hip flexor & TFL moderate tightness, B mild quad tightness Straight Leg Raise Test Results about 70 deg B but starts feeling tightness around 45 deg on L Comments inc tightness w/DF B, dec tightness w/cervical flex Thessaly Test 20 Degrees Test Results neg L Thessaly Test 5 Degrees Test Results neg L Juan M's Test Test Results mild tightness Varus- 25 Degrees Test Results neg Valgus- 25 Degrees Test Results neg PT-OP-M Strength Start: 08/04/21 11:45 Freq: Status: Active Protocol: Document 08/04/21 16:53 [facility] (Rec: 08/04/21 18:31 [facility] [id number]) Hip Strength Hip Manual Muscle Testing Right Flexion (L2) 5 Normal Extension (S1) 5 Normal Abduction 5 Normal Adduction 5 Normal External Rotation 5 Normal Internal Rotation 5 Normal Left Flexion (L2) 4 Good Extension (S1) 5 Normal Abduction 5 Normal Adduction 5 Normal External Rotation 4- Good- Internal Rotation 4- Good- Comments pain w/rots; dec trunk stability w/hip ext testing Knee Strength Knee Manual Muscle Testing Right Flexion (S2) 5 Normal Extension (L3) 5 Normal Left Flexion (S2) 4 Good Extension (L3) 5 Normal Comments pain flex Ankle/Foot Strength Ankle and Foot Manual Muscle Testing Right Dorsiflexion (L4) 5 Normal Plantarflexion (S1) 5 Normal Left Dorsiflexion (L4) 5 Normal Plantarflexion (S1) 5 Normal Comments 20 heel raises B PT-OP-Q Treatments Start: 08/04/21 11:45 Freq: Status: Active Protocol: Document 08/25/21 07:29 [facility] (Rec: 08/25/21 11:16 [facility] [id number]) Manual Therapy Treatment Soft Tissue Mobilization calf Body Location L Mobilization Type Myofascial Release,Rolling, Strumming Intensity/Depth Moderate Comments APs HS Body Location med and lat mostly & circumfrential Mobilization Type Myofascial Release,Rolling, Strumming Intensity/Depth Moderate Comments active HS stretch Joint Mobilizations tibfib Direction PA FM L tibfem Direction PA FM & IR FM Self-Care/Home Management Treatment Education Other Education verbal review of exercises and written down activities w/ discussion on use for self management. Discussed w/pt re: icing for comfort also. PT-OP-T Assessment and Plan Start: 08/04/21 11:45 Freq: Status: Active Protocol: Document 08/25/21 07:29 [facility] (Rec: 08/25/21 11:16 [facility] [id number]) Physical Therapy Assessment Goals balance Prison Goal (LTG) pt will be able to do SLS on LLE w/o lat lean or shear . 08/25-improved w/cue and use of mirror LTG Duration 11/25/21 strength Short Term Goal (STG) Pt will be indep w/hEP STG Duration achieved Orthotics Prosthetics Technician Goal (LTG) Pt will have at least 4/5 on LPM in all planes and 5/5 MMT w/rotations and hip flex w/o pain. 08/25-no change LTG Duration 11/25 pain Orthotics Prosthetics Technician Goal (LTG) Pt will report no knee pain w/ his typical activties including running, going up steps 2 at a time, jumping and sitting in figure 4 position 08/25-no change LTG Duration 11/25/21 Assessment Summary Assessment pt has made limited progress d /t limited visits before he has to leave for work. he plans to returnt o PT in 2 months when he returns home. He had imrpoved knee flex and IR w/manual but does still get pain w/flex. He is indep w/ HEP at this time for current strength/flexiblity activities . Physical Therapy Plan Frequency and Duration Frequency of Treatment 1-2x/Week Duration of Treatment 3 months Plan of Care Start Date 08/25/21 Plan of Care End Date 11/25/21 Therapeutic Interventions Therapeutic Interventions Aquatic Therapy,Balance Training,Gait Training,Home Exercise Program,Joint Mobilizations,Manual Therapy, Neuromuscular Re-education, Patient/Caregiver Education, Self-Care/Home Management,Soft Tissue Mobilization,Taping, Therapeutic Activities, Therapeutic Exercises Modalities Cold Pack/Ice Massage,Electric Stimulation,Hot Packs, Infrared Therapy,Ultrasound Next Visit Focus/Plan Next Note Type Progress Note Next Visit Plan assess HEP, work manually on LLE restrictions
--- NOTE | 2021-08-25 11:16 | PT.OPPOC ---
Physical, Occupational & Speech Therapy At [facility] Current Diagnoses Other chronic pain (08/25/21) Pain in left knee (08/25/21) Visit Care Team Role Provider Type Bernard López DO Attending Provider Physician Family Provider Primary Care Provider Referring Provider Specialty: Family Practice Address: [address] [place] [address], [facility] Email: Plan Of Care PT-OP-T Assessment and Plan Start: 08/04/21 11:45 Freq: Status: Active Protocol: Document 08/25/21 07:29 [facility] (Rec: 08/25/21 11:16 [facility] [id number]) Physical Therapy Assessment Goals balance Group Home Goal (LTG) pt will be able to do SLS on LLE w/o lat lean or shear . 08/25-improved w/cue and use of mirror LTG Duration 11/25/21 strength Short Term Goal (STG) Pt will be indep w/hEP STG Duration achieved Emt Driver Goal (LTG) Pt will have at least 4/5 on LPM in all planes and 5/5 MMT w/rotations and hip flex w/o pain. 08/25-no change LTG Duration 11/25 pain Emt Driver Goal (LTG) Pt will report no knee pain w/ his typical activties including running, going up steps 2 at a time, jumping and sitting in figure 4 position 08/25-no change LTG Duration 11/25/21 Assessment Summary Assessment pt has made limited progress d /t limited visits before he has to leave for work. he plans to returnt o PT in 2 months when he returns home. He had imrpoved knee flex and IR w/manual but does still get pain w/flex. He is indep w/ HEP at this time for current strength/flexiblity activities . Physical Therapy Plan Frequency and Duration Frequency of Treatment 1-2x/Week Duration of Treatment 3 months Plan of Care Start Date 08/25/21 Plan of Care End Date 11/25/21 Therapeutic Interventions Therapeutic Interventions Aquatic Therapy,Balance Training,Gait Training,Home Exercise Program,Joint Mobilizations,Manual Therapy, Neuromuscular Re-education, Patient/Caregiver Education, Self-Care/Home Management,Soft Tissue Mobilization,Taping, Therapeutic Activities, Therapeutic Exercises Modalities Cold Pack/Ice Massage,Electric Stimulation,Hot Packs, Infrared Therapy,Ultrasound Next Visit Focus/Plan Next Note Type Progress Note Next Visit Plan assess HEP, work manually on LLE restrictions Plan of Care Dates Plan of Care Start Date 08/25/21 Plan of Care End Date 11/25/21 Electronically Signed by: Fannie Sinclair, PT 08/25/21 2160 If you are in agreement with this Plan of Care, please return a signed and dated copy. I have reviewed this Plan of Care and certify that the skilled therapy services above are required to meet the patient?s needs. Physician Signature Date Printed Name and Credentials Clinical Instructor Signature Printed Name and Credentials
--- NOTE | 2021-11-19 13:52 | PT.OTN ---
Current Diagnoses Other chronic pain (11/19/21) Pain in left knee (11/19/21) Physical Therapy Treatment Note PT-OP-A Visit Information Start: 08/04/21 11:45 Freq: Status: Active Protocol: Document 11/19/21 08:19 [facility] (Rec: 11/19/21 12:20 [facility] [id number]) Out-Patient Physical Therapy Visit Information Visit Information Visit Type Progress Note Visit Start Time 08:18 Visit Stop Time 09:03 Total Visit Minutes 45 Visit Number 5 Number of INTELLECTUAL PROPERTY LEGAL ASSISTANT Visits 0 PT-OP-B Current Condition Start: 08/04/21 11:45 Freq: Status: Active Protocol: Document 08/04/21 16:53 [facility] (Rec: 08/04/21 18:31 [facility] [id number]) Current Condition History of Current Condition Current Complaints L knee pain History of Current Condition Pt [place] and his knee was killing him the next day. In May, he was so stiff and painful and couldn't barely move his knee and was sonny up . Pt reports a nusance pain in the back of his knee and has been clicking ant. He is up/ down 10 flights of stairs about 10x/day and has to run/ up/down. Pt reports figure 4 sit aggrevates his knee the most after 20-30 min of sitting. He wonders if hm sitting like that for the plane rides irritated the knee . Pt rides his [place] pretty often, but hasn't recenlty d/t knee bothering him. Pt started riding in September. Pt denies swelling initially. Pt reprots it's been only the small bouts of time that it is really bad where he can't move it. Pt reports pain was about a 6/10 initially and had to do step to w/stairs for a while. He got back first week of June. that Pt leaves August 28. Pt reports shoulder surgery years ago but otherwise no other issues. Reports LBP that he sees chiro occ for and often LLE is always shorter and is corrected. Treatment Goals Patient/Caregiver Goals run up/down stairs w/o pain, be able to get into odd spots, avoid a catestrophic knee injury PT-OP-C Subjective Start: 08/04/21 11:45 Freq: Status: Active Protocol: Document 11/19/21 08:19 [facility] (Rec: 11/19/21 12:20 [facility] [id number]) OP-PT Subjective Patient Comments Patient Comments pt reports doing exercises on boat. Still having pain in knee PT-OP-D Balance Start: 08/04/21 11:45 Freq: Status: Active Protocol: Document 11/19/21 08:19 [facility] (Rec: 11/19/21 12:20 [facility] [id number]) Balance Tests Single Limb Standing Single Limb- Right >30 sec Single Limb- Left >30 sec but leans PT-OP-F Manual Assessment Start: 08/04/21 11:45 Freq: Status: Active Protocol: Document 08/04/21 16:53 [facility] (Rec: 08/04/21 18:31 [facility] [id number]) Manual Assessments Soft Tissue Assessment Soft Tissue Mobility Assessment tenderness at one aspect of med jt line L w/heavy palpation, tight HS and calf Joint Mobility Assessment Joint Mobility Assessment R iliac crest higher, PSIS R Post, ER of femur on L>R, IR tibia B, pronated feet B, patella turned out L>R, tracks lat slightly L w/quad engagment, L foot turned out in standing slightly PT-OP-G Mobility & Gait Start: 08/04/21 11:45 Freq: Status: Active Protocol: Document 08/04/21 16:53 [facility] (Rec: 08/04/21 18:31 [facility] [id number]) OP Gait Assessment Comments Gait Comments pt has dec ant depression and post dep L side, inc trunk lat lean w/WB on LLE PT-OP-J Posture/Palpation/Skin Start: 08/04/21 11:45 Freq: Status: Active Protocol: Document 08/04/21 16:53 [facility] (Rec: 08/04/21 18:31 [facility] [id number]) Posture Evaluation Abdias Postural Classification System Lumbar Protective Mechanism Left AP 1 Lumbar Protective Mechanism Right AP 1 Lumbar Protective Mechanism Left PA 2 Lumbar Protective Mechanism Right PA 2 PT-OP-K Range of Motion Start: 08/04/21 11:45 Freq: Status: Active Protocol: Document 11/19/21 08:19 [facility] (Rec: 11/19/21 12:20 [facility] [id number]) Knee Goniometric Range of Motion Knee Left Flexion Active (degrees) 138 Extension Active (degrees) 0 Comments discomfort w/flex post & ant slight discomfort w/ext PT-OP-L Special Tests Start: 08/04/21 11:45 Freq: Status: Active Protocol: Document 08/04/21 16:53 [facility] (Rec: 08/04/21 18:31 [facility] [id number]) Special Tests Knee Special Tests Lilli Test Test Results neg no pain w/ext testing Vanessa's Test Results neg L Posterior Draw Test Results neg L Caesar Test Results B hip flexor & TFL moderate tightness, B mild quad tightness Straight Leg Raise Test Results about 70 deg B but starts feeling tightness around 45 deg on L Comments inc tightness w/DF B, dec tightness w/cervical flex Thessaly Test 20 Degrees Test Results neg L Thessaly Test 5 Degrees Test Results neg L Juan M's Test Test Results mild tightness Varus- 25 Degrees Test Results neg Valgus- 25 Degrees Test Results neg PT-OP-M Strength Start: 08/04/21 11:45 Freq: Status: Active Protocol: Document 11/19/21 08:19 [facility] (Rec: 11/19/21 12:20 [facility] [id number]) Hip Strength Hip Manual Muscle Testing Right Flexion (L2) 5 Normal Extension (S1) 5 Normal Abduction 5 Normal Adduction 5 Normal External Rotation 5 Normal Internal Rotation 5 Normal Left Flexion (L2) 5 Normal Extension (S1) 5 Normal Abduction 5 Normal Adduction 5 Normal External Rotation 4+ Good+ Internal Rotation 5 Normal Comments pain w/ER; dec trunk stability w/hip ext testing Knee Strength Knee Manual Muscle Testing Right Flexion (S2) 5 Normal Extension (L3) 5 Normal Left Flexion (S2) 4 Good Extension (L3) 4+ Good+ Comments pain flex Ankle/Foot Strength Ankle and Foot Manual Muscle Testing Right Dorsiflexion (L4) 5 Normal Plantarflexion (S1) 5 Normal Left Dorsiflexion (L4) 5 Normal Plantarflexion (S1) 5 Normal Comments 20 heel raises B PT-OP-Q Treatments Start: 08/04/21 11:45 Freq: Status: Active Protocol: Document 11/19/21 08:19 [facility] (Rec: 11/19/21 12:20 [facility] [id number]) Manual Therapy Treatment Soft Tissue Mobilization adductors Body Location L Mobilization Type Rolling Intensity/Depth Moderate Body Position Hooklying quad Body Location L & circumfrential & along ITB Mobilization Type Rolling,Strumming Intensity/Depth Moderate Comments in caesar test position calf Body Location L Mobilization Type Myofascial Release,Rolling, Strumming Intensity/Depth Moderate Comments APs in knee flex Joint Mobilizations tibfem Direction IR L tib FM hip Joint L ER FM in hooklying PT-OP-T Assessment and Plan Start: 08/04/21 11:45 Freq: Status: Active Protocol: Document 11/19/21 08:19 [facility] (Rec: 11/19/21 12:20 [facility] [id number]) Physical Therapy Assessment Goals balance Program Director Scouting Goal (LTG) pt will be able to do SLS on LLE w/o lat lean or shear . 08/25-improved w/cue and use of mirror 11/19-can in mirror but not w/o LTG Duration 12/19 strength Short Term Goal (STG) Pt will be indep w/hEP STG Duration achieved Jail Goal (LTG) Pt will have at least 4/5 on LPM in all planes and 5/5 MMT w/rotations and hip flex w/o pain. 08/25-no change 11/19-improved overall LTG Duration 01/19 pain Program Director Scouting Goal (LTG) Pt will report no knee pain w/ his typical activties including running, going up steps 2 at a time, jumping and sitting in figure 4 position 08/25-no change 11/19-still sore w/up/down stairs for work and running on boat, figure 4 stilluncomfortable LTG Duration 02/18 Assessment Summary Assessment Pt was away for 3 months for work so has not attended PT. He does show improved ROM and some improved strength w/his exercises, but still does have knee pain that affects his ability to do his typical daily activities (work and exercise related and even sitting figure 4). He was encouraged to follow up w/MD re: possible MRI and ortho referral also. He would bneefit from resume of PT now that he has returned home to work on strength, stability and ROM. Physical Therapy Plan Frequency and Duration Frequency of Treatment 1-2x/Week Duration of Treatment 3 months Plan of Care Start Date 11/19/21 Plan of Care End Date 02/18/22 Therapeutic Interventions Therapeutic Interventions Aquatic Therapy,Balance Training,Gait Training,Home Exercise Program,Joint Mobilizations,Manual Therapy, Neuromuscular Re-education, Patient/Caregiver Education, Self-Care/Home Management,Soft Tissue Mobilization,Taping, Therapeutic Activities, Therapeutic Exercises Modalities Cold Pack/Ice Massage,Electric Stimulation,Hot Packs, Infrared Therapy,Ultrasound Next Visit Focus/Plan Next Note Type Treatment Note Next Visit Plan re-assess HEP, start working SL stability/strength, work manually on LLE restrictions
--- NOTE | 2021-11-19 13:52 | PT.OPPOC ---
Physical, Occupational & Speech Therapy At [facility] Current Diagnoses Other chronic pain (11/19/21) Pain in left knee (11/19/21) Visit Care Team Role Provider Type Doug López DO Attending Provider Physician Family Provider Primary Care Provider Referring Provider Specialty: Family Practice Address: [address] [place] [address], [facility] Email: Plan Of Care PT-OP-T Assessment and Plan Start: 08/04/21 11:45 Freq: Status: Active Protocol: Document 11/19/21 08:19 [facility] (Rec: 11/19/21 12:20 [facility] [id number]) Physical Therapy Assessment Goals balance [facility] Goal (LTG) pt will be able to do SLS on LLE w/o lat lean or shear . 08/25-improved w/cue and use of mirror 11/19-can in mirror but not w/o LTG Duration 12/19 strength Short Term Goal (STG) Pt will be indep w/hEP STG Duration achieved [facility] Goal (LTG) Pt will have at least 4/5 on LPM in all planes and 5/5 MMT w/rotations and hip flex w/o pain. 08/25-no change 11/19-improved overall LTG Duration 01/19 pain Granite Polisher Apprentice Goal (LTG) Pt will report no knee pain w/ his typical activties including running, going up steps 2 at a time, jumping and sitting in figure 4 position 08/25-no change 11/19-still sore w/up/down stairs for work and running on boat, figure 4 stilluncomfortable LTG Duration 02/18 Assessment Summary Assessment Pt was away for 3 months for work so has not attended PT. He does show improved ROM and some improved strength w/his exercises, but still does have knee pain that affects his ability to do his typical daily activities (work and exercise related and even sitting figure 4). He was encouraged to follow up w/MD re: possible MRI and ortho referral also. He would bneefit from resume of PT now that he has returned home to work on strength, stability and ROM. Physical Therapy Plan Frequency and Duration Frequency of Treatment 1-2x/Week Duration of Treatment 3 months Plan of Care Start Date 11/19/21 Plan of Care End Date 02/18/22 Therapeutic Interventions Therapeutic Interventions Aquatic Therapy,Balance Training,Gait Training,Home Exercise Program,Joint Mobilizations,Manual Therapy, Neuromuscular Re-education, Patient/Caregiver Education, Self-Care/Home Management,Soft Tissue Mobilization,Taping, Therapeutic Activities, Therapeutic Exercises Modalities Cold Pack/Ice Massage,Electric Stimulation,Hot Packs, Infrared Therapy,Ultrasound Next Visit Focus/Plan Next Note Type Treatment Note Next Visit Plan re-assess HEP, start working SL stability/strength, work manually on LLE restrictions Plan of Care Dates Plan of Care Start Date 11/19/21 Plan of Care End Date 02/18/22 Electronically Signed by: Fannie Sinclair, PT 11/19/21 [id number] If you are in agreement with this Plan of Care, please return a signed and dated copy. I have reviewed this Plan of Care and certify that the skilled therapy services above are required to meet the patient?s needs. Physician Signature Date Printed Name and Credentials Clinical Instructor Signature Printed Name and Credentials
--- NOTE | 2021-11-24 09:03 | PT.OTN ---
Current Diagnoses Other chronic pain (11/24/21) Pain in left knee (11/24/21) Physical Therapy Treatment Note PT-OP-A Visit Information Start: 08/04/21 11:45 Freq: Status: Active Protocol: Document 11/24/21 08:24 [facility] (Rec: 11/24/21 09:03 [facility] [id number]) Out-Patient Physical Therapy Visit Information Visit Information Visit Type Treatment Note Visit Start Time 08:16 Visit Stop Time 08:57 Total Visit Minutes 41 Visit Number 6 Number of CLOTH FOLDER MACHINE Visits 0 PT-OP-B Current Condition Start: 08/04/21 11:45 Freq: Status: Active Protocol: Document 08/04/21 16:53 [facility] (Rec: 08/04/21 18:31 [facility] [id number]) Current Condition History of Current Condition Current Complaints L knee pain History of Current Condition Pt reports [place] and his knee was killing him the next day. In May, he was so stiff and painful and couldn't barely move his knee and was sonny up . Pt reports a nusance pain in the back of his knee and has been clicking ant. He is up/ down 10 flights of stairs about 10x/day and has to run/ up/down. Pt reports figure 4 sit aggrevates his knee the most after 20-30 min of sitting. He wonders if hm sitting like that for the plane rides irritated the knee . Pt rides his pelaton pretty often, but hasn't recenlty d/t knee bothering him. Pt started riding in September. Pt denies swelling initially. Pt reprots it's been only the small bouts of time that it is really bad where he can't move it. Pt reports pain was about a 6/10 initially and had to do step to w/stairs for a while. He got back first week of June. that Pt leaves August 28. Pt reports shoulder surgery years ago but otherwise no other issues. Reports LBP that he sees chiro occ for and often LLE is always shorter and is corrected. Treatment Goals Patient/Caregiver Goals run up/down stairs w/o pain, be able to get into odd spots, avoid a catestrophic knee injury PT-OP-C Subjective Start: 08/04/21 11:45 Freq: Status: Active Protocol: Document 11/24/21 08:24 [facility] (Rec: 11/24/21 09:03 [facility] [id number]) OP-PT Subjective Patient Comments Patient Comments Pt reports he talked to MD office and get order for MRI1 PT-OP-D Balance Start: 08/04/21 11:45 Freq: Status: Active Protocol: Document 11/19/21 08:19 [facility] (Rec: 11/19/21 12:20 [facility] [id number]) Balance Tests Single Limb Standing Single Limb- Right >30 sec Single Limb- Left >30 sec but leans PT-OP-F Manual Assessment Start: 08/04/21 11:45 Freq: Status: Active Protocol: Document 08/04/21 16:53 [facility] (Rec: 08/04/21 18:31 [facility] [id number]) Manual Assessments Soft Tissue Assessment Soft Tissue Mobility Assessment tenderness at one aspect of med jt line L w/heavy palpation, tight HS and calf Joint Mobility Assessment Joint Mobility Assessment R iliac crest higher, PSIS R Post, ER of femur on L>R, IR tibia B, pronated feet B, patella turned out L>R, tracks lat slightly L w/quad engagment, L foot turned out in standing slightly PT-OP-G Mobility & Gait Start: 08/04/21 11:45 Freq: Status: Active Protocol: Document 08/04/21 16:53 [facility] (Rec: 08/04/21 18:31 [facility] [id number]) OP Gait Assessment Comments Gait Comments pt has dec ant depression and post dep L side, inc trunk lat lean w/WB on LLE PT-OP-J Posture/Palpation/Skin Start: 08/04/21 11:45 Freq: Status: Active Protocol: Document 08/04/21 16:53 [facility] (Rec: 08/04/21 18:31 [facility] [id number]) Posture Evaluation Abdias Postural Classification System Lumbar Protective Mechanism Left AP 1 Lumbar Protective Mechanism Right AP 1 Lumbar Protective Mechanism Left PA 2 Lumbar Protective Mechanism Right PA 2 PT-OP-K Range of Motion Start: 08/04/21 11:45 Freq: Status: Active Protocol: Document 11/19/21 08:19 [facility] (Rec: 11/19/21 12:20 [facility] [id number]) Knee Goniometric Range of Motion Knee Left Flexion Active (degrees) 138 Extension Active (degrees) 0 Comments discomfort w/flex post & ant slight discomfort w/ext PT-OP-L Special Tests Start: 08/04/21 11:45 Freq: Status: Active Protocol: Document 08/04/21 16:53 [facility] (Rec: 08/04/21 18:31 [facility] [id number]) Special Tests Knee Special Tests Lilli Test Test Results neg no pain w/ext testing Vanessa's Test Results neg L Posterior Draw Test Results neg L Caesar Test Results B hip flexor & TFL moderate tightness, B mild quad tightness Straight Leg Raise Test Results about 70 deg B but starts feeling tightness around 45 deg on L Comments inc tightness w/DF B, dec tightness w/cervical flex Thessaly Test 20 Degrees Test Results neg L Thessaly Test 5 Degrees Test Results neg L Juan M's Test Test Results mild tightness Varus- 25 Degrees Test Results neg Valgus- 25 Degrees Test Results neg PT-OP-M Strength Start: 08/04/21 11:45 Freq: Status: Active Protocol: Document 11/19/21 08:19 [facility] (Rec: 11/19/21 12:20 [facility] [id number]) Hip Strength Hip Manual Muscle Testing Right Flexion (L2) 5 Normal Extension (S1) 5 Normal Abduction 5 Normal Adduction 5 Normal External Rotation 5 Normal Internal Rotation 5 Normal Left Flexion (L2) 5 Normal Extension (S1) 5 Normal Abduction 5 Normal Adduction 5 Normal External Rotation 4+ Good+ Internal Rotation 5 Normal Comments pain w/ER; dec trunk stability w/hip ext testing Knee Strength Knee Manual Muscle Testing Right Flexion (S2) 5 Normal Extension (L3) 5 Normal Left Flexion (S2) 4 Good Extension (L3) 4+ Good+ Comments pain flex Ankle/Foot Strength Ankle and Foot Manual Muscle Testing Right Dorsiflexion (L4) 5 Normal Plantarflexion (S1) 5 Normal Left Dorsiflexion (L4) 5 Normal Plantarflexion (S1) 5 Normal Comments 20 heel raises B PT-OP-Q Treatments Start: 08/04/21 11:45 Freq: Status: Active Protocol: Document 11/24/21 08:24 [facility] (Rec: 11/24/21 09:03 [facility] [id number]) Gym Equipment Therapeutic Ball HS curls Ball Size/Color green Body Position Supine Reps/Duration 2x10 Therapeutic Exercises Standing Exercises SL Standing Exercise Name 1.RDL 2. SL squat Side bilateral Reps/Minutes 12 lunge Side bilateral Reps/Minutes 5 Comments cues for no lat shear of L hip squat Standing Exercise Name near full depth without increase in pain Side bilateral Reps/Minutes 8 Comments cues for control & knee position, glute firing Manual Therapy Treatment Soft Tissue Mobilization ITB Body Location L Mobilization Type Rolling,Strumming Intensity/Depth Moderate Body Position Supine quad Body Location L lat & quad tendon Mobilization Type Rolling,Strumming Intensity/Depth Moderate HS Body Location med Mobilization Type Myofascial Release,Rolling, Strumming Intensity/Depth Moderate Comments hooklying w/ap PT-OP-T Assessment and Plan Start: 08/04/21 11:45 Freq: Status: Active Protocol: Document 11/24/21 08:24 [facility] (Rec: 11/24/21 09:03 [facility] [id number]) Physical Therapy Assessment Goals balance Half-Way Goal (LTG) pt will be able to do SLS on LLE w/o lat lean or shear . 08/25-improved w/cue and use of mirror 11/19-can in mirror but not w/o LTG Duration 12/19 strength Short Term Goal (STG) Pt will be indep w/hEP STG Duration achieved Cut Off Saw Tender Metal Goal (LTG) Pt will have at least 4/5 on LPM in all planes and 5/5 MMT w/rotations and hip flex w/o pain. 08/25-no change 11/19-improved overall LTG Duration 01/19 pain Cut Off Saw Tender Metal Goal (LTG) Pt will report no knee pain w/ his typical activties including running, going up steps 2 at a time, jumping and sitting in figure 4 position 08/25-no change 11/19-still sore w/up/down stairs for work and running on boat, figure 4 stilluncomfortable LTG Duration 02/18 Assessment Summary Assessment Pt was able to go into full flex and ext today without discomfort but did note ant pain w/HS curls but it went away after the exercise. He had a lot of quad tightness that may be related to this pain. Physical Therapy Plan Frequency and Duration Frequency of Treatment 1-2x/Week Duration of Treatment 3 months Plan of Care Start Date 11/19/21 Plan of Care End Date 02/18/22 Next Visit Focus/Plan Next Note Type Treatment Note Next Visit Plan cont working SL stability/ strength, work manually on LLE restrictions
--- NOTE | 2021-11-26 09:51 | PT.OTN ---
Current Diagnoses Other chronic pain (11/26/21) Pain in left knee (11/26/21) Physical Therapy Treatment Note PT-OP-A Visit Information Start: 08/04/21 11:45 Freq: Status: Active Protocol: Document 11/26/21 09:05 [facility] (Rec: 11/26/21 09:51 [facility] [id number]) Out-Patient Physical Therapy Visit Information Visit Information Visit Type Treatment Note Visit Start Time 09:05 Visit Stop Time 09:45 Total Visit Minutes 40 Visit Number 7 Number of CHEMICAL DEPENDENCY NURSE Visits 0 PT-OP-B Current Condition Start: 08/04/21 11:45 Freq: Status: Active Protocol: Document 08/04/21 16:53 [facility] (Rec: 08/04/21 18:31 [facility] [id number]) Current Condition History of Current Condition Current Complaints L knee pain History of Current Condition Pt reports he [place] to the [place] Apr 27 and his knee was killing him the next day. In May, he was so stiff and painful and couldn't barely move his knee and was sonny up . Pt reports a nusance pain in the back of his knee and has been clicking ant. He is up/ down 10 flights of stairs about 10x/day and has to run/ up/down. Pt reports figure 4 sit aggrevates his knee the most after 20-30 min of sitting. He wonders if hm sitting like that for the plane rides irritated the knee . Pt rides his [place] pretty often, but hasn't recenlty d/t knee bothering him. Pt started riding in September. Pt denies swelling initially. Pt reprots it's been only the small bouts of time that it is really bad where he can't move it. Pt reports pain was about a 6/10 initially and had to do step to w/stairs for a while. He got back first week of June. that Pt leaves August 28. Pt reports shoulder surgery years ago but otherwise no other issues. Reports LBP that he sees chiro occ for and often LLE is always shorter and is corrected. Treatment Goals Patient/Caregiver Goals run up/down stairs w/o pain, be able to get into odd spots, avoid a catestrophic knee injury PT-OP-C Subjective Start: 08/04/21 11:45 Freq: Status: Active Protocol: Document 11/26/21 09:05 [facility] (Rec: 11/26/21 09:51 [facility] [id number]) OP-PT Subjective Patient Comments Patient Comments Pt reports he went ot chiro and his R knee is killing him. L knee still sore,. Patient Reported Progress Same PT-OP-D Balance Start: 08/04/21 11:45 Freq: Status: Active Protocol: Document 11/19/21 08:19 [facility] (Rec: 11/19/21 12:20 [facility] [id number]) Balance Tests Single Limb Standing Single Limb- Right >30 sec Single Limb- Left >30 sec but leans PT-OP-F Manual Assessment Start: 08/04/21 11:45 Freq: Status: Active Protocol: Document 08/04/21 16:53 [facility] (Rec: 08/04/21 18:31 [facility] [id number]) Manual Assessments Soft Tissue Assessment Soft Tissue Mobility Assessment tenderness at one aspect of med jt line L w/heavy palpation, tight HS and calf Joint Mobility Assessment Joint Mobility Assessment R iliac crest higher, PSIS R Post, ER of femur on L>R, IR tibia B, pronated feet B, patella turned out L>R, tracks lat slightly L w/quad engagment, L foot turned out in standing slightly PT-OP-G Mobility & Gait Start: 08/04/21 11:45 Freq: Status: Active Protocol: Document 08/04/21 16:53 [facility] (Rec: 08/04/21 18:31 [facility] [id number]) OP Gait Assessment Comments Gait Comments pt has dec ant depression and post dep L side, inc trunk lat lean w/WB on LLE PT-OP-J Posture/Palpation/Skin Start: 08/04/21 11:45 Freq: Status: Active Protocol: Document 08/04/21 16:53 [facility] (Rec: 08/04/21 18:31 [facility] [id number]) Posture Evaluation Abdias Postural Classification System Lumbar Protective Mechanism Left AP 1 Lumbar Protective Mechanism Right AP 1 Lumbar Protective Mechanism Left PA 2 Lumbar Protective Mechanism Right PA 2 PT-OP-K Range of Motion Start: 08/04/21 11:45 Freq: Status: Active Protocol: Document 11/19/21 08:19 [facility] (Rec: 11/19/21 12:20 [facility] [id number]) Knee Goniometric Range of Motion Knee Left Flexion Active (degrees) 138 Extension Active (degrees) 0 Comments discomfort w/flex post & ant slight discomfort w/ext PT-OP-L Special Tests Start: 08/04/21 11:45 Freq: Status: Active Protocol: Document 08/04/21 16:53 [facility] (Rec: 08/04/21 18:31 [facility] [id number]) Special Tests Knee Special Tests Lilli Test Test Results neg no pain w/ext testing Vanessa's Test Results neg L Posterior Draw Test Results neg L Caesar Test Results B hip flexor & TFL moderate tightness, B mild quad tightness Straight Leg Raise Test Results about 70 deg B but starts feeling tightness around 45 deg on L Comments inc tightness w/DF B, dec tightness w/cervical flex Thessaly Test 20 Degrees Test Results neg L Thessaly Test 5 Degrees Test Results neg L Juan M's Test Test Results mild tightness Varus- 25 Degrees Test Results neg Valgus- 25 Degrees Test Results neg PT-OP-M Strength Start: 08/04/21 11:45 Freq: Status: Active Protocol: Document 11/19/21 08:19 [facility] (Rec: 11/19/21 12:20 [facility] [id number]) Hip Strength Hip Manual Muscle Testing Right Flexion (L2) 5 Normal Extension (S1) 5 Normal Abduction 5 Normal Adduction 5 Normal External Rotation 5 Normal Internal Rotation 5 Normal Left Flexion (L2) 5 Normal Extension (S1) 5 Normal Abduction 5 Normal Adduction 5 Normal External Rotation 4+ Good+ Internal Rotation 5 Normal Comments pain w/ER; dec trunk stability w/hip ext testing Knee Strength Knee Manual Muscle Testing Right Flexion (S2) 5 Normal Extension (L3) 5 Normal Left Flexion (S2) 4 Good Extension (L3) 4+ Good+ Comments pain flex Ankle/Foot Strength Ankle and Foot Manual Muscle Testing Right Dorsiflexion (L4) 5 Normal Plantarflexion (S1) 5 Normal Left Dorsiflexion (L4) 5 Normal Plantarflexion (S1) 5 Normal Comments 20 heel raises B PT-OP-Q Treatments Start: 08/04/21 11:45 Freq: Status: Active Protocol: Document 11/26/21 09:05 [facility] (Rec: 11/26/21 09:51 [facility] [id number]) Therapeutic Exercises Standing Exercises gait at wall Side bilateral Reps/Minutes 10sec x2 SL Standing Exercise Name 1.RDL 2. SL squat Side bilateral Reps/Minutes 12 Comments RDL w/stick on back for cues; SL quat w/rail prn lunge Standing Exercise Name side lunge w/self hip mob Side bilateral Reps/Minutes 4 Manual Therapy Treatment Joint Mobilizations sacrum Joint L Direction UPA & caudal FM innominate Joint B IR FM, L caudal FM, B abd FM Comments w/neuro re edu at end ranges hip Joint B on axis ER & IR FM w/neuro re edu at end range PT-OP-T Assessment and Plan Start: 08/04/21 11:45 Freq: Status: Active Protocol: Document 11/26/21 09:05 [facility] (Rec: 11/26/21 09:51 [facility] [id number]) Physical Therapy Assessment Goals balance Correction Goal (LTG) pt will be able to do SLS on LLE w/o lat lean or shear . 08/25-improved w/cue and use of mirror 11/19-can in mirror but not w/o LTG Duration 12/19 strength Short Term Goal (STG) Pt will be indep w/hEP STG Duration achieved Correction Goal (LTG) Pt will have at least 4/5 on LPM in all planes and 5/5 MMT w/rotations and hip flex w/o pain. 08/25-no change 11/19-improved overall LTG Duration 01/19 pain Correction Goal (LTG) Pt will report no knee pain w/ his typical activties including running, going up steps 2 at a time, jumping and sitting in figure 4 position 08/25-no change 11/19-still sore w/up/down stairs for work and running on boat, figure 4 stilluncomfortable LTG Duration 02/18 Assessment Summary Assessment Pt pelvis was off on L which likely was also affecting B knee pain. He has hip and pelvis restrictions that likely cause some of the rotational forces at L knee and inc pain.P t did report dec R knee pain w/manual. L knee pain is mostly w/ prolonged positioning so will have to wait to see hwo he does w/driving. Physical Therapy Plan Frequency and Duration Frequency of Treatment 1-2x/Week Duration of Treatment 3 months Plan of Care Start Date 11/19/21 Plan of Care End Date 02/18/22 Next Visit Focus/Plan Next Note Type Treatment Note Next Visit Plan cont working SL stability/ strength, work manually on LLE restrictions
--- NOTE | 2021-12-01 12:12 | PT.OTN ---
Current Diagnoses Other chronic pain (12/01/21) Pain in left knee (12/01/21) Physical Therapy Treatment Note PT-OP-A Visit Information Start: 08/04/21 11:45 Freq: Status: Active Protocol: Document 12/01/21 12:08 [facility] (Rec: 12/01/21 12:12 [facility] [id number]) Out-Patient Physical Therapy Visit Information Visit Information Visit Type Treatment Note Visit Start Time 10:38 Visit Stop Time 11:18 Total Visit Minutes 40 Visit Number 8 Number of BREEDING MANAGER Visits 0 PT-OP-B Current Condition Start: 08/04/21 11:45 Freq: Status: Active Protocol: Document 08/04/21 16:53 [facility] (Rec: 08/04/21 18:31 [facility] [id number]) Current Condition History of Current Condition Current Complaints L knee pain History of Current Condition Pt reports [place] and his knee was killing him the next day. In May, he was so stiff and painful and couldn't barely move his knee and was sonny up . Pt reports a nusance pain in the back of his knee and has been clicking ant. He is up/ down 10 flights of stairs about 10x/day and has to run/ up/down. Pt reports figure 4 sit aggrevates his knee the most after 20-30 min of sitting. He wonders if hm sitting like that for the plane rides irritated the knee . Pt rides his pelaton pretty often, but hasn't recenlty d/t knee bothering him. Pt started riding in September. Pt denies swelling initially. Pt reprots it's been only the small bouts of time that it is really bad where he can't move it. Pt reports pain was about a 6/10 initially and had to do step to w/stairs for a while. He got back first week of June. that Pt leaves August 28. Pt reports shoulder surgery years ago but otherwise no other issues. Reports LBP that he sees chiro occ for and often LLE is always shorter and is corrected. Treatment Goals Patient/Caregiver Goals run up/down stairs w/o pain, be able to get into odd spots, avoid a catestrophic knee injury PT-OP-C Subjective Start: 08/04/21 11:45 Freq: Status: Active Protocol: Document 12/01/21 12:08 [facility] (Rec: 12/01/21 12:12 [facility] [id number]) OP-PT Subjective Patient Comments Patient Comments Pt reports knees felt better after last time after he also went to massage and MT focused on adductors and HS as PT recommended PT-OP-D Balance Start: 08/04/21 11:45 Freq: Status: Active Protocol: Document 11/19/21 08:19 [facility] (Rec: 11/19/21 12:20 [facility] [id number]) Balance Tests Single Limb Standing Single Limb- Right >30 sec Single Limb- Left >30 sec but leans PT-OP-F Manual Assessment Start: 08/04/21 11:45 Freq: Status: Active Protocol: Document 08/04/21 16:53 [facility] (Rec: 08/04/21 18:31 [facility] [id number]) Manual Assessments Soft Tissue Assessment Soft Tissue Mobility Assessment tenderness at one aspect of med jt line L w/heavy palpation, tight HS and calf Joint Mobility Assessment Joint Mobility Assessment R iliac crest higher, PSIS R Post, ER of femur on L>R, IR tibia B, pronated feet B, patella turned out L>R, tracks lat slightly L w/quad engagment, L foot turned out in standing slightly PT-OP-G Mobility & Gait Start: 08/04/21 11:45 Freq: Status: Active Protocol: Document 08/04/21 16:53 [facility] (Rec: 08/04/21 18:31 [facility] [id number]) OP Gait Assessment Comments Gait Comments pt has dec ant depression and post dep L side, inc trunk lat lean w/WB on LLE PT-OP-J Posture/Palpation/Skin Start: 08/04/21 11:45 Freq: Status: Active Protocol: Document 08/04/21 16:53 [facility] (Rec: 08/04/21 18:31 [facility] [id number]) Posture Evaluation [facility] Postural Classification System Lumbar Protective Mechanism Left AP 1 Lumbar Protective Mechanism Right AP 1 Lumbar Protective Mechanism Left PA 2 Lumbar Protective Mechanism Right PA 2 PT-OP-K Range of Motion Start: 08/04/21 11:45 Freq: Status: Active Protocol: Document 11/19/21 08:19 [facility] (Rec: 11/19/21 12:20 [facility] [id number]) Knee Goniometric Range of Motion Knee Left Flexion Active (degrees) 138 Extension Active (degrees) 0 Comments discomfort w/flex post & ant slight discomfort w/ext PT-OP-L Special Tests Start: 08/04/21 11:45 Freq: Status: Active Protocol: Document 08/04/21 16:53 [facility] (Rec: 08/04/21 18:31 [facility] [id number]) Special Tests Knee Special Tests Lilli Test Test Results neg no pain w/ext testing Vanessa's Test Results neg L Posterior Draw Test Results neg L Caesar Test Results B hip flexor & TFL moderate tightness, B mild quad tightness Straight Leg Raise Test Results about 70 deg B but starts feeling tightness around 45 deg on L Comments inc tightness w/DF B, dec tightness w/cervical flex Thessaly Test 20 Degrees Test Results neg L Thessaly Test 5 Degrees Test Results neg L Juan M's Test Test Results mild tightness Varus- 25 Degrees Test Results neg Valgus- 25 Degrees Test Results neg PT-OP-M Strength Start: 08/04/21 11:45 Freq: Status: Active Protocol: Document 11/19/21 08:19 [facility] (Rec: 11/19/21 12:20 [facility] [id number]) Hip Strength Hip Manual Muscle Testing Right Flexion (L2) 5 Normal Extension (S1) 5 Normal Abduction 5 Normal Adduction 5 Normal External Rotation 5 Normal Internal Rotation 5 Normal Left Flexion (L2) 5 Normal Extension (S1) 5 Normal Abduction 5 Normal Adduction 5 Normal External Rotation 4+ Good+ Internal Rotation 5 Normal Comments pain w/ER; dec trunk stability w/hip ext testing Knee Strength Knee Manual Muscle Testing Right Flexion (S2) 5 Normal Extension (L3) 5 Normal Left Flexion (S2) 4 Good Extension (L3) 4+ Good+ Comments pain flex Ankle/Foot Strength Ankle and Foot Manual Muscle Testing Right Dorsiflexion (L4) 5 Normal Plantarflexion (S1) 5 Normal Left Dorsiflexion (L4) 5 Normal Plantarflexion (S1) 5 Normal Comments 20 heel raises B PT-OP-Q Treatments Start: 08/04/21 11:45 Freq: Status: Active Protocol: Document 12/01/21 12:08 [facility] (Rec: 12/01/21 12:12 [facility] [id number]) Manual Therapy Treatment Soft Tissue Mobilization ITB Body Location L Mobilization Type Rolling,Strumming Intensity/Depth Moderate Body Position Supine calf Body Location L Mobilization Type Myofascial Release,Rolling, Strumming Intensity/Depth Moderate Comments APs in knee flex HS Body Location med Mobilization Type Myofascial Release,Rolling, Strumming Intensity/Depth Moderate Comments hooklying w/ap & active HS stretch Joint Mobilizations tibfib Direction PA FM L tibfem Joint IR FM hip Joint on axis IR FM in hooklying L PT-OP-T Assessment and Plan Start: 08/04/21 11:45 Freq: Status: Active Protocol: Document 12/01/21 12:08 [facility] (Rec: 12/01/21 12:12 [facility] [id number]) Physical Therapy Assessment Goals balance Lace Finisher Goal (LTG) pt will be able to do SLS on LLE w/o lat lean or shear . 08/25-improved w/cue and use of mirror 11/19-can in mirror but not w/o LTG Duration 12/19 strength Short Term Goal (STG) Pt will be indep w/hEP STG Duration achieved Prison Goal (LTG) Pt will have at least 4/5 on LPM in all planes and 5/5 MMT w/rotations and hip flex w/o pain. 08/25-no change 11/19-improved overall LTG Duration 01/19 pain Lace Finisher Goal (LTG) Pt will report no knee pain w/ his typical activties including running, going up steps 2 at a time, jumping and sitting in figure 4 position 6/-no change 11/19-still sore w/up/down stairs for work and running on boat, figure 4 stilluncomfortable LTG Duration 02/18 Assessment Summary Assessment Pt has significant tightness at borders of calf and HS at knee joint that did imrpove w/ manual treatment. Physical Therapy Plan Frequency and Duration Frequency of Treatment 1-2x/Week Duration of Treatment 3 months Plan of Care Start Date 11/19/21 Plan of Care End Date 02/18/22 Next Visit Focus/Plan Next Note Type Treatment Note Next Visit Plan cont working SL stability/ strength, give active HS stretch to door w/sam PF/DF, work manually on LLE restrictions
--- NOTE | 2021-12-07 15:00 | PT.OTN ---
Current Diagnoses Other chronic pain (12/31/21) Pain in left knee (12/31/21) Physical Therapy Treatment Note PT-OP-A Visit Information Start: 08/04/21 11:45 Freq: Status: Active Protocol: Document 12/07/21 13:51 [facility] (Rec: 12/07/21 14:48 [facility] [id number]) Out-Patient Physical Therapy Visit Information Visit Information Visit Type Treatment Note Visit Start Time 13:45 Visit Stop Time 14:35 Total Visit Minutes 50 Visit Number 9 Number of GTA Visits 1 PT-OP-B Current Condition Start: 08/04/21 11:45 Freq: Status: Active Protocol: Document 08/04/21 16:53 [facility] (Rec: 08/04/21 18:31 [facility] [id number]) Current Condition History of Current Condition Current Complaints L knee pain History of Current Condition Pt reports he [place] back to the boat in Apr 27 and his knee was killing him the next day. In May, he was so stiff and painful and couldn't barely move his knee and was sonny up . Pt reports a nusance pain in the back of his knee and has been clicking ant. He is up/ down 10 flights of stairs about 10x/day and has to run/ up/down. Pt reports figure 4 sit aggrevates his knee the most after 20-30 min of sitting. He wonders if hm sitting like that for the plane rides irritated the knee . Pt rides his [place] pretty often, but hasn't recenlty d/t knee bothering him. Pt started riding in September. Pt denies swelling initially. Pt reprots it's been only the small bouts of time that it is really bad where he can't move it. Pt reports pain was about a 6/10 initially and had to do step to w/stairs for a while. He got back first week of June. that Pt leaves August 28. Pt reports shoulder surgery years ago but otherwise no other issues. Reports LBP that he sees chiro occ for and often LLE is always shorter and is corrected. Treatment Goals Patient/Caregiver Goals run up/down stairs w/o pain, be able to get into odd spots, avoid a catestrophic knee injury PT-OP-C Subjective Start: 08/04/21 11:45 Freq: Status: Active Protocol: Document 12/07/21 13:51 [facility] (Rec: 12/07/21 14:48 [facility] [id number]) OP-PT Subjective Patient Comments Patient Comments Pt feels like knee pain is same, but thinks focusing on hip is on the right track. When he got out of the car in the parking lot the first ten steps popped like there was something hitting it in the knee. PT-OP-D Balance Start: 08/04/21 11:45 Freq: Status: Active Protocol: Document 11/19/21 08:19 [facility] (Rec: 11/19/21 12:20 [facility] [id number]) Balance Tests Single Limb Standing Single Limb- Right >30 sec Single Limb- Left >30 sec but leans PT-OP-F Manual Assessment Start: 08/04/21 11:45 Freq: Status: Active Protocol: Document 08/04/21 16:53 [facility] (Rec: 08/04/21 18:31 [facility] [id number]) Manual Assessments Soft Tissue Assessment Soft Tissue Mobility Assessment tenderness at one aspect of med jt line L w/heavy palpation, tight HS and calf Joint Mobility Assessment Joint Mobility Assessment R iliac crest higher, PSIS R Post, ER of femur on L>R, IR tibia B, pronated feet B, patella turned out L>R, tracks lat slightly L w/quad engagment, L foot turned out in standing slightly PT-OP-G Mobility & Gait Start: 08/04/21 11:45 Freq: Status: Active Protocol: Document 08/04/21 16:53 [facility] (Rec: 08/04/21 18:31 [facility] [id number]) OP Gait Assessment Comments Gait Comments pt has dec ant depression and post dep L side, inc trunk lat lean w/WB on LLE PT-OP-J Posture/Palpation/Skin Start: 08/04/21 11:45 Freq: Status: Active Protocol: Document 12/31/21 07:45 [facility] (Rec: 12/31/21 11:52 [facility] [id number]) Posture Evaluation [facility] Postural Classification System Lumbar Protective Mechanism Left AP 3 Lumbar Protective Mechanism Right AP 3 Lumbar Protective Mechanism Left PA 3 Lumbar Protective Mechanism Right PA 4 PT-OP-K Range of Motion Start: 08/04/21 11:45 Freq: Status: Active Protocol: Document 11/19/21 08:19 [facility] (Rec: 11/19/21 12:20 [facility] [id number]) Knee Goniometric Range of Motion Knee Left Flexion Active (degrees) 138 Extension Active (degrees) 0 Comments discomfort w/flex post & ant slight discomfort w/ext PT-OP-L Special Tests Start: 08/04/21 11:45 Freq: Status: Active Protocol: Document 08/04/21 16:53 [facility] (Rec: 08/04/21 18:31 [facility] [id number]) Special Tests Knee Special Tests Lilli Test Test Results neg no pain w/ext testing Vanessa's Test Results neg L Posterior Draw Test Results neg L Caesar Test Results B hip flexor & TFL moderate tightness, B mild quad tightness Straight Leg Raise Test Results about 70 deg B but starts feeling tightness around 45 deg on L Comments inc tightness w/DF B, dec tightness w/cervical flex Thessaly Test 20 Degrees Test Results neg L Thessaly Test 5 Degrees Test Results neg L Juan M's Test Test Results mild tightness Varus- 25 Degrees Test Results neg Valgus- 25 Degrees Test Results neg PT-OP-M Strength Start: 08/04/21 11:45 Freq: Status: Active Protocol: Document 12/31/21 07:45 [facility] (Rec: 12/31/21 11:52 [facility] [id number]) Hip Strength Hip Manual Muscle Testing Right Flexion (L2) 5 Normal Extension (S1) 5 Normal Abduction 5 Normal Adduction 5 Normal External Rotation 5 Normal Internal Rotation 5 Normal Left Flexion (L2) 5 Normal Extension (S1) 5 Normal Abduction 5 Normal Adduction 5 Normal External Rotation 5 Normal Internal Rotation 5 Normal Comments pain w/ER Knee Strength Knee Manual Muscle Testing Right Flexion (S2) 5 Normal Extension (L3) 5 Normal Left Flexion (S2) 5 Normal Extension (L3) 5 Normal Ankle/Foot Strength Ankle and Foot Manual Muscle Testing Right Dorsiflexion (L4) 5 Normal Plantarflexion (S1) 5 Normal Left Dorsiflexion (L4) 5 Normal Plantarflexion (S1) 5 Normal Comments 20 heel raises B PT-OP-Q Treatments Start: 08/04/21 11:45 Freq: Status: Active Protocol: Document 12/07/21 13:51 [facility] (Rec: 12/08/21 07:06 [facility] [phone]-) Manual Therapy Treatment Soft Tissue Mobilization HS Body Location R proximal HS and glutes, R QL Mobilization Type Myofascial Release,Rolling, Strumming Intensity/Depth Moderate Manual Traction R hip Details long axis distraction varying angles Body Position Supine Reps/Duration 3 x 60s Comments w/ strap - good feedback response PT-OP-T Assessment and Plan Start: 08/04/21 11:45 Freq: Status: Active Protocol: Document 12/07/21 13:51 [facility] (Rec: 01/31/22 21:24 [facility] [phone]-) Physical Therapy Assessment Goals balance Fpc Goal (LTG) pt will be able to do SLS on LLE w/o lat lean or shear . 08/25-improved w/cue and use of mirror 11/19-can in mirror but not w/o LTG Duration achieved strength Short Term Goal (STG) Pt will be indep w/hEP STG Duration achieved Fpc Goal (LTG) Pt will have at least 4/5 on LPM in all planes and 5/5 MMT w/rotations and hip flex w/o pain. 08/25-no change 11/19-improved overall LTG Duration 02/18 pain Fpc Goal (LTG) Pt will report no knee pain w/ his typical activties including running, going up steps 2 at a time, jumping and sitting in figure 4 position 08/25-no change 11/19-still sore w/up/down stairs for work and running on boat, figure 4 stilluncomfortable LTG Duration 02/18 Assessment Summary Assessment Treatment focus on manual therapy today and HEP review discussion. Pinpoint palpable tightness in R Lower back and glutes improves w/ manual therapy. Physical Therapy Plan Frequency and Duration Frequency of Treatment 1-2x/Week Plan of Care Start Date 11/19/21 Plan of Care End Date 02/18/22 Next Visit Focus/Plan Next Note Type Treatment Note Next Visit Plan cont working SL stability/ strength, give active HS stretch to door w/sam PF/DF, work manually on LLE restrictions
--- NOTE | 2021-12-09 16:00 | PT.OTN ---
Current Diagnoses Other chronic pain (12/09/21) Pain in left knee (12/09/21) Physical Therapy Treatment Note PT-OP-A Visit Information Start: 08/04/21 11:45 Freq: Status: Active Protocol: Document 12/09/21 13:27 AW (Rec: 12/09/21 15:59 AW [id number]) Out-Patient Physical Therapy Visit Information Visit Information Visit Type Treatment Note Visit Start Time 15:15 Visit Stop Time 15:55 Total Visit Minutes 40 Visit Number 10 Number of HOT METAL CRANE OPERATOR Visits 0 PT-OP-B Current Condition Start: 08/04/21 11:45 Freq: Status: Active Protocol: Document 08/04/21 16:53 LR (Rec: 08/04/21 18:31 [facility] [id number]) Current Condition History of Current Condition Current Complaints L knee pain History of Current Condition Pt [place] and his knee was killing him the next day. In May, he was so stiff and painful and couldn't barely move his knee and was sonny up . Pt reports a nusance pain in the back of his knee and has been clicking ant. He is up/ down 10 flights of stairs about 10x/day and has to run/ up/down. Pt reports figure 4 sit aggrevates his knee the most after 20-30 min of sitting. He wonders if hm sitting like that for the plane rides irritated the knee . Pt rides his pelaton pretty often, but hasn't recenlty d/t knee bothering him. Pt started riding in September. Pt denies swelling initially. Pt reprots it's been only the small bouts of time that it is really bad where he can't move it. Pt reports pain was about a 6/10 initially and had to do step to w/stairs for a while. He got back first week of June. that Pt leaves August 28. Pt reports shoulder surgery years ago but otherwise no other issues. Reports LBP that he sees chiro occ for and often LLE is always shorter and is corrected. Treatment Goals Patient/Caregiver Goals run up/down stairs w/o pain, be able to get into odd spots, avoid a catestrophic knee injury PT-OP-C Subjective Start: 08/04/21 11:45 Freq: Status: Active Protocol: Document 12/09/21 13:27 AW (Rec: 12/09/21 15:59 AW [id number]) OP-PT Subjective Patient Comments Patient Comments Pain is relatively consistent. Pt has been practicing single leg activities at home with a mirror for better alignment. PT-OP-D Balance Start: 08/04/21 11:45 Freq: Status: Active Protocol: Document 11/19/21 08:19 [facility] (Rec: 11/19/21 12:20 [facility] [id number]) Balance Tests Single Limb Standing Single Limb- Right >30 sec Single Limb- Left >30 sec but leans PT-OP-F Manual Assessment Start: 08/04/21 11:45 Freq: Status: Active Protocol: Document 08/04/21 16:53 [facility] (Rec: 08/04/21 18:31 [facility] [id number]) Manual Assessments Soft Tissue Assessment Soft Tissue Mobility Assessment tenderness at one aspect of med jt line L w/heavy palpation, tight HS and calf Joint Mobility Assessment Joint Mobility Assessment R iliac crest higher, PSIS R Post, ER of femur on L>R, IR tibia B, pronated feet B, patella turned out L>R, tracks lat slightly L w/quad engagment, L foot turned out in standing slightly PT-OP-G Mobility & Gait Start: 08/04/21 11:45 Freq: Status: Active Protocol: Document 08/04/21 16:53 [facility] (Rec: 08/04/21 18:31 [facility] [id number]) OP Gait Assessment Comments Gait Comments pt has dec ant depression and post dep L side, inc trunk lat lean w/WB on LLE PT-OP-J Posture/Palpation/Skin Start: 08/04/21 11:45 Freq: Status: Active Protocol: Document 08/04/21 16:53 [facility] (Rec: 08/04/21 18:31 [facility] [id number]) Posture Evaluation Abdias Postural Classification System Lumbar Protective Mechanism Left AP 1 Lumbar Protective Mechanism Right AP 1 Lumbar Protective Mechanism Left PA 2 Lumbar Protective Mechanism Right PA 2 PT-OP-K Range of Motion Start: 08/04/21 11:45 Freq: Status: Active Protocol: Document 11/19/21 08:19 [facility] (Rec: 11/19/21 12:20 [facility] [id number]) Knee Goniometric Range of Motion Knee Left Flexion Active (degrees) 138 Extension Active (degrees) 0 Comments discomfort w/flex post & ant slight discomfort w/ext PT-OP-L Special Tests Start: 08/04/21 11:45 Freq: Status: Active Protocol: Document 08/04/21 16:53 [facility] (Rec: 08/04/21 18:31 [facility] [id number]) Special Tests Knee Special Tests Lilli Test Test Results neg no pain w/ext testing Vanessa's Test Results neg L Posterior Draw Test Results neg L Caesar Test Results B hip flexor & TFL moderate tightness, B mild quad tightness Straight Leg Raise Test Results about 70 deg B but starts feeling tightness around 45 deg on L Comments inc tightness w/DF B, dec tightness w/cervical flex Thessaly Test 20 Degrees Test Results neg L Thessaly Test 5 Degrees Test Results neg L Juan M's Test Test Results mild tightness Varus- 25 Degrees Test Results neg Valgus- 25 Degrees Test Results neg PT-OP-M Strength Start: 08/04/21 11:45 Freq: Status: Active Protocol: Document 11/19/21 08:19 [facility] (Rec: 11/19/21 12:20 [facility] [id number]) Hip Strength Hip Manual Muscle Testing Right Flexion (L2) 5 Normal Extension (S1) 5 Normal Abduction 5 Normal Adduction 5 Normal External Rotation 5 Normal Internal Rotation 5 Normal Left Flexion (L2) 5 Normal Extension (S1) 5 Normal Abduction 5 Normal Adduction 5 Normal External Rotation 4+ Good+ Internal Rotation 5 Normal Comments pain w/ER; dec trunk stability w/hip ext testing Knee Strength Knee Manual Muscle Testing Right Flexion (S2) 5 Normal Extension (L3) 5 Normal Left Flexion (S2) 4 Good Extension (L3) 4+ Good+ Comments pain flex Ankle/Foot Strength Ankle and Foot Manual Muscle Testing Right Dorsiflexion (L4) 5 Normal Plantarflexion (S1) 5 Normal Left Dorsiflexion (L4) 5 Normal Plantarflexion (S1) 5 Normal Comments 20 heel raises B PT-OP-Q Treatments Start: 08/04/21 11:45 Freq: Status: Active Protocol: Document 12/09/21 13:27 AW (Rec: 12/09/21 15:59 AW [id number]) Therapeutic Exercises Standing Exercises quad stretch Standing Exercise Name w/glute activation Side bilateral Reps/Minutes 30 sec x3 staying in hold SL Standing Exercise Name 1.RDL 2. SL squat Side bilateral Reps/Minutes 12 Comments RDL w/stick on back for cues; SL quat w/rail prn lunge Standing Exercise Name side lunge w/self hip mob Side bilateral Reps/Minutes 4 squat Standing Exercise Name w/ adductor stretch at max depth Side bilateral Reps/Minutes 8 Comments cues for control & knee position, glute firing Manual Therapy Treatment Joint Mobilizations tibfib Direction PA FM L tibfem Joint IR FM Manual Traction R hip Details long axis distraction varying angles Body Position Supine Reps/Duration 3 x 60s Comments w/ strap - good feedback response PT-OP-T Assessment and Plan Start: 08/04/21 11:45 Freq: Status: Active Protocol: Document 12/09/21 13:27 AW (Rec: 12/09/21 15:59 AW [id number]) Physical Therapy Assessment Goals balance Longterm Goal (LTG) pt will be able to do SLS on LLE w/o lat lean or shear . 08/25-improved w/cue and use of mirror 11/19-can in mirror but not w/o LTG Duration 12/19 strength Short Term Goal (STG) Pt will be indep w/hEP STG Duration achieved Equal Opportunity Representative Goal (LTG) Pt will have at least 4/5 on LPM in all planes and 5/5 MMT w/rotations and hip flex w/o pain. 08/25-no change 11/19-improved overall LTG Duration 01/19 pain Longterm Goal (LTG) Pt will report no knee pain w/ his typical activties including running, going up steps 2 at a time, jumping and sitting in figure 4 position 08/25-no change 11/19-still sore w/up/down stairs for work and running on boat, figure 4 stilluncomfortable LTG Duration 02/18 Assessment Summary Assessment Pt has point of tightness and pain in right lower back which seems to relax with hip mobilization. R hip lacks rotation and possible contributes to left knee pain. Physical Therapy Plan Frequency and Duration Frequency of Treatment 1-2x/Week Duration of Treatment 3 months Plan of Care Start Date 11/19/21 Plan of Care End Date 02/18/22 Next Visit Focus/Plan Next Note Type Treatment Note Next Visit Plan cont working SL stability/ strength, give active HS stretch to door w/sam PF/DF, work manually on LLE restrictions
--- NOTE | 2021-12-17 09:50 | PT.OTN ---
Current Diagnoses Other chronic pain (12/17/21) Pain in left knee (12/17/21) Physical Therapy Treatment Note PT-OP-A Visit Information Start: 08/04/21 11:45 Freq: Status: Active Protocol: Document 12/17/21 09:02 AW (Rec: 12/17/21 09:47 AW [id number]) Out-Patient Physical Therapy Visit Information Visit Information Visit Type Treatment Note Visit Start Time 09:00 Visit Stop Time 09:40 Total Visit Minutes 40 Visit Number 11 Number of ENGINE LATHE SET UP OPERATOR Visits 0 PT-OP-B Current Condition Start: 08/04/21 11:45 Freq: Status: Active Protocol: Document 08/04/21 16:53 LR (Rec: 08/04/21 18:31 [facility] [id number]) Current Condition History of Current Condition Current Complaints L knee pain History of Current Condition Pt reports he [place] back to the boat in Apr 27 and his knee was killing him the next day. In May, he was so stiff and painful and couldn't barely move his knee and was sonny up . Pt reports a nusance pain in the back of his knee and has been clicking ant. He is up/ down 10 flights of stairs about 10x/day and has to run/ up/down. Pt reports figure 4 sit aggrevates his knee the most after 20-30 min of sitting. He wonders if hm sitting like that for the plane rides irritated the knee . Pt rides his pel[place] pretty often, but hasn't recenlty d/t knee bothering him. Pt started riding in September. Pt denies swelling initially. Pt reprots it's been only the small bouts of time that it is really bad where he can't move it. Pt reports pain was about a 6/10 initially and had to do step to w/stairs for a while. He got back first week of June. that Pt leaves August 28. Pt reports shoulder surgery years ago but otherwise no other issues. Reports LBP that he sees chiro occ for and often LLE is always shorter and is corrected. Treatment Goals Patient/Caregiver Goals run up/down stairs w/o pain, be able to get into odd spots, avoid a catestrophic knee injury PT-OP-C Subjective Start: 08/04/21 11:45 Freq: Status: Active Protocol: Document 12/17/21 09:02 AW (Rec: 12/17/21 09:47 AW [id number]) OP-PT Subjective Patient Comments Patient Comments Still has not heard back about MRI. Focusing more on hip for SL exercises at home. Patient Reported Progress Same PT-OP-D Balance Start: 08/04/21 11:45 Freq: Status: Active Protocol: Document 11/19/21 08:19 [facility] (Rec: 11/19/21 12:20 [facility] [id number]) Balance Tests Single Limb Standing Single Limb- Right >30 sec Single Limb- Left >30 sec but leans PT-OP-F Manual Assessment Start: 08/04/21 11:45 Freq: Status: Active Protocol: Document 08/04/21 16:53 [facility] (Rec: 08/04/21 18:31 [facility] [id number]) Manual Assessments Soft Tissue Assessment Soft Tissue Mobility Assessment tenderness at one aspect of med jt line L w/heavy palpation, tight HS and calf Joint Mobility Assessment Joint Mobility Assessment R iliac crest higher, PSIS R Post, ER of femur on L>R, IR tibia B, pronated feet B, patella turned out L>R, tracks lat slightly L w/quad engagment, L foot turned out in standing slightly PT-OP-G Mobility & Gait Start: 08/04/21 11:45 Freq: Status: Active Protocol: Document 08/04/21 16:53 [facility] (Rec: 08/04/21 18:31 [facility] [id number]) OP Gait Assessment Comments Gait Comments pt has dec ant depression and post dep L side, inc trunk lat lean w/WB on LLE PT-OP-J Posture/Palpation/Skin Start: 08/04/21 11:45 Freq: Status: Active Protocol: Document 08/04/21 16:53 [facility] (Rec: 08/04/21 18:31 [facility] [id number]) Posture Evaluation Abdias Postural Classification System Lumbar Protective Mechanism Left AP 1 Lumbar Protective Mechanism Right AP 1 Lumbar Protective Mechanism Left PA 2 Lumbar Protective Mechanism Right PA 2 PT-OP-K Range of Motion Start: 08/04/21 11:45 Freq: Status: Active Protocol: Document 11/19/21 08:19 [facility] (Rec: 11/19/21 12:20 [facility] [id number]) Knee Goniometric Range of Motion Knee Left Flexion Active (degrees) 138 Extension Active (degrees) 0 Comments discomfort w/flex post & ant slight discomfort w/ext PT-OP-L Special Tests Start: 08/04/21 11:45 Freq: Status: Active Protocol: Document 08/04/21 16:53 [facility] (Rec: 08/04/21 18:31 [facility] [id number]) Special Tests Knee Special Tests Lilli Test Test Results neg no pain w/ext testing Vanessa's Test Results neg L Posterior Draw Test Results neg L Caesar Test Results B hip flexor & TFL moderate tightness, B mild quad tightness Straight Leg Raise Test Results about 70 deg B but starts feeling tightness around 45 deg on L Comments inc tightness w/DF B, dec tightness w/cervical flex Thessaly Test 20 Degrees Test Results neg L Thessaly Test 5 Degrees Test Results neg L Juan M's Test Test Results mild tightness Varus- 25 Degrees Test Results neg Valgus- 25 Degrees Test Results neg PT-OP-M Strength Start: 08/04/21 11:45 Freq: Status: Active Protocol: Document 11/19/21 08:19 [facility] (Rec: 11/19/21 12:20 [facility] [id number]) Hip Strength Hip Manual Muscle Testing Right Flexion (L2) 5 Normal Extension (S1) 5 Normal Abduction 5 Normal Adduction 5 Normal External Rotation 5 Normal Internal Rotation 5 Normal Left Flexion (L2) 5 Normal Extension (S1) 5 Normal Abduction 5 Normal Adduction 5 Normal External Rotation 4+ Good+ Internal Rotation 5 Normal Comments pain w/ER; dec trunk stability w/hip ext testing Knee Strength Knee Manual Muscle Testing Right Flexion (S2) 5 Normal Extension (L3) 5 Normal Left Flexion (S2) 4 Good Extension (L3) 4+ Good+ Comments pain flex Ankle/Foot Strength Ankle and Foot Manual Muscle Testing Right Dorsiflexion (L4) 5 Normal Plantarflexion (S1) 5 Normal Left Dorsiflexion (L4) 5 Normal Plantarflexion (S1) 5 Normal Comments 20 heel raises B PT-OP-Q Treatments Start: 08/04/21 11:45 Freq: Status: Active Protocol: Document 12/17/21 09:02 AW (Rec: 12/17/21 09:47 AW [id number]) Cardio Equipment Bicycle (Upright) Duration (Minutes) 4 Resistance 8 Seat Position 7 Gym Equipment Cable Column (Body Solid) knee ext Details knee ext Resistance 7 Reps/Time 15 x 2 HS curl Details HS curl Resistance 7 Reps/Time 15 Therapeutic Exercises Supine Exercises bridge Supine Exercise Name bridge - DL and SL, HS curl Resistance T ball - 55 cm; increase size next visit Standing Exercises SLS Standing Exercise Name 1. SLS unstable 2. with hip abd (swing knee bent) stable Equipment Used blue gym mat for SLS; firm for hip abd quad stretch Standing Exercise Name w/glute activation Side bilateral Reps/Minutes 30 sec x3 staying in hold SL Standing Exercise Name 1.RDL Side bilateral Reps/Minutes 12 Comments improved spinal neutral through mvmt squat Side bilateral Resistance bosu Reps/Minutes 15 Comments cues for control & knee position, glute firing Self-Care/Home Management Treatment Education Patient Education Home Exercise Program Other Education Added bridge (DL and SL) for home. Pt is considering getting a 65 cm ball. PT-OP-T Assessment and Plan Start: 08/04/21 11:45 Freq: Status: Active Protocol: Document 12/17/21 09:02 AW (Rec: 12/17/21 09:47 AW [id number]) Physical Therapy Assessment Goals balance Dining Room Captain Goal (LTG) pt will be able to do SLS on LLE w/o lat lean or shear . 08/25-improved w/cue and use of mirror 11/19-can in mirror but not w/o LTG Duration 12/19 strength Short Term Goal (STG) Pt will be indep w/hEP STG Duration achieved Dining Room Captain Goal (LTG) Pt will have at least 4/5 on LPM in all planes and 5/5 MMT w/rotations and hip flex w/o pain. 08/25-no change 11/19-improved overall LTG Duration 01/19 pain Dining Room Captain Goal (LTG) Pt will report no knee pain w/ his typical activties including running, going up steps 2 at a time, jumping and sitting in figure 4 position 6-no change 11/19-still sore w/up/down stairs for work and running on boat, figure 4 stilluncomfortable LTG Duration 02/18 Assessment Summary Assessment Pt has slight irritation anterior knees with resisted flexion/extension. Advised pt irritation ok as long as resolved in 24 hours. Pt to monitor. Introduced more unstable surface training for improved joint control today. Physical Therapy Plan Frequency and Duration Frequency of Treatment 1-2x/Week Plan of Care Start Date 11/19/21 Plan of Care End Date 02/18/22 Therapeutic Interventions Therapeutic Interventions Aquatic Therapy,Balance Training,Gait Training,Home Exercise Program,Joint Mobilizations,Manual Therapy, Neuromuscular Re-education, Patient/Caregiver Education, Self-Care/Home Management,Soft Tissue Mobilization,Taping, Therapeutic Activities, Therapeutic Exercises Modalities Cold Pack/Ice Massage,Electric Stimulation,Hot Packs, Infrared Therapy,Ultrasound Next Visit Focus/Plan Next Note Type Progress Note Next Visit Plan cont working SL stability/ strength, give active HS stretch to door w/sam PF/DF, work manually on LLE restrictions
--- NOTE | 2021-12-22 10:35 | PT.OTN ---
Current Diagnoses Other chronic pain (12/22/21) Pain in left knee (12/22/21) Physical Therapy Treatment Note PT-OP-A Visit Information Start: 08/04/21 11:45 Freq: Status: Active Protocol: Document 12/22/21 09:00 AW (Rec: 12/22/21 10:35 AW [id number]) Out-Patient Physical Therapy Visit Information Visit Information Visit Type Treatment Note Visit Start Time 09:45 Visit Stop Time 10:25 Total Visit Minutes 40 Visit Number 12 Number of AIRCRAFT LOAD CONTROLLER Visits 0 PT-OP-B Current Condition Start: 08/04/21 11:45 Freq: Status: Active Protocol: Document 08/04/21 16:53 LR (Rec: 08/04/21 18:31 [facility] [id number]) Current Condition History of Current Condition Current Complaints L knee pain History of Current Condition Pt reports [place] and his knee was killing him the next day. In May, he was so stiff and painful and couldn't barely move his knee and was sonny up . Pt reports a nusance pain in the back of his knee and has been clicking ant. He is up/ down 10 flights of stairs about 10x/day and has to run/ up/down. Pt reports figure 4 sit aggrevates his knee the most after 20-30 min of sitting. He wonders if hm sitting like that for the plane rides irritated the knee . Pt rides his pelaton pretty often, but hasn't recenlty d/t knee bothering him. Pt started riding in September. Pt denies swelling initially. Pt reprots it's been only the small bouts of time that it is really bad where he can't move it. Pt reports pain was about a 6/10 initially and had to do step to w/stairs for a while. He got back first week of June. that Pt leaves August 28. Pt reports shoulder surgery years ago but otherwise no other issues. Reports LBP that he sees chiro occ for and often LLE is always shorter and is corrected. Treatment Goals Patient/Caregiver Goals run up/down stairs w/o pain, be able to get into odd spots, avoid a catestrophic knee injury PT-OP-C Subjective Start: 08/04/21 11:45 Freq: Status: Active Protocol: Document 12/22/21 09:00 AW (Rec: 12/22/21 10:35 AW [id number]) OP-PT Subjective Patient Comments Patient Comments MRI for left knee today. Got a BOSU and a T ball PT-OP-D Balance Start: 08/04/21 11:45 Freq: Status: Active Protocol: Document 11/19/21 08:19 [facility] (Rec: 11/19/21 12:20 [facility] [id number]) Balance Tests Single Limb Standing Single Limb- Right >30 sec Single Limb- Left >30 sec but leans PT-OP-F Manual Assessment Start: 08/04/21 11:45 Freq: Status: Active Protocol: Document 08/04/21 16:53 [facility] (Rec: 08/04/21 18:31 [facility] [id number]) Manual Assessments Soft Tissue Assessment Soft Tissue Mobility Assessment tenderness at one aspect of med jt line L w/heavy palpation, tight HS and calf Joint Mobility Assessment Joint Mobility Assessment R iliac crest higher, PSIS R Post, ER of femur on L>R, IR tibia B, pronated feet B, patella turned out L>R, tracks lat slightly L w/quad engagment, L foot turned out in standing slightly PT-OP-G Mobility & Gait Start: 08/04/21 11:45 Freq: Status: Active Protocol: Document 08/04/21 16:53 [facility] (Rec: 08/04/21 18:31 [facility] [id number]) OP Gait Assessment Comments Gait Comments pt has dec ant depression and post dep L side, inc trunk lat lean w/WB on LLE PT-OP-J Posture/Palpation/Skin Start: 08/04/21 11:45 Freq: Status: Active Protocol: Document 08/04/21 16:53 [facility] (Rec: 08/04/21 18:31 [facility] [id number]) Posture Evaluation Abdias Postural Classification System Lumbar Protective Mechanism Left AP 1 Lumbar Protective Mechanism Right AP 1 Lumbar Protective Mechanism Left PA 2 Lumbar Protective Mechanism Right PA 2 PT-OP-K Range of Motion Start: 08/04/21 11:45 Freq: Status: Active Protocol: Document 11/19/21 08:19 [facility] (Rec: 11/19/21 12:20 [facility] [id number]) Knee Goniometric Range of Motion Knee Left Flexion Active (degrees) 138 Extension Active (degrees) 0 Comments discomfort w/flex post & ant slight discomfort w/ext PT-OP-L Special Tests Start: 08/04/21 11:45 Freq: Status: Active Protocol: Document 08/04/21 16:53 [facility] (Rec: 08/04/21 18:31 [facility] [id number]) Special Tests Knee Special Tests Lilli Test Test Results neg no pain w/ext testing Vanessa's Test Results neg L Posterior Draw Test Results neg L Caesar Test Results B hip flexor & TFL moderate tightness, B mild quad tightness Straight Leg Raise Test Results about 70 deg B but starts feeling tightness around 45 deg on L Comments inc tightness w/DF B, dec tightness w/cervical flex Thessaly Test 20 Degrees Test Results neg L Thessaly Test 5 Degrees Test Results neg L Juan M's Test Test Results mild tightness Varus- 25 Degrees Test Results neg Valgus- 25 Degrees Test Results neg PT-OP-M Strength Start: 08/04/21 11:45 Freq: Status: Active Protocol: Document 11/19/21 08:19 [facility] (Rec: 11/19/21 12:20 [facility] [id number]) Hip Strength Hip Manual Muscle Testing Right Flexion (L2) 5 Normal Extension (S1) 5 Normal Abduction 5 Normal Adduction 5 Normal External Rotation 5 Normal Internal Rotation 5 Normal Left Flexion (L2) 5 Normal Extension (S1) 5 Normal Abduction 5 Normal Adduction 5 Normal External Rotation 4+ Good+ Internal Rotation 5 Normal Comments pain w/ER; dec trunk stability w/hip ext testing Knee Strength Knee Manual Muscle Testing Right Flexion (S2) 5 Normal Extension (L3) 5 Normal Left Flexion (S2) 4 Good Extension (L3) 4+ Good+ Comments pain flex Ankle/Foot Strength Ankle and Foot Manual Muscle Testing Right Dorsiflexion (L4) 5 Normal Plantarflexion (S1) 5 Normal Left Dorsiflexion (L4) 5 Normal Plantarflexion (S1) 5 Normal Comments 20 heel raises B PT-OP-Q Treatments Start: 08/04/21 11:45 Freq: Status: Active Protocol: Document 12/22/21 09:00 AW (Rec: 12/22/21 10:35 AW [id number]) Gym Equipment Cable Column (Body Solid) knee ext Details knee ext Resistance 7 Reps/Time 15 x 2 HS curl Details HS curl Resistance 7 Reps/Time 15 x 2 Therapeutic Exercises Supine Exercises bridge Supine Exercise Name bridge - DL and SL, HS curl Resistance T ball - 65 cm Prone Exercises plank Prone Exercise Name plank - forearms and toes Reps/Minutes w/ hip ext, alternating Standing Exercises step ups Standing Exercise Name step ups Equipment Used BOSU - round side SLS Standing Exercise Name 1. SLS unstable 2. with hip abd (swing knee bent) stable Equipment Used blue gym mat for SLS; firm for hip abd quad stretch Standing Exercise Name w/glute activation Side bilateral Reps/Minutes 30 sec x3 staying in hold squat Side bilateral Resistance balance board - red chains Reps/Minutes 15 Comments cues for control & knee position, glute firing PT-OP-T Assessment and Plan Start: 08/04/21 11:45 Freq: Status: Active Protocol: Document 12/22/21 09:00 AW (Rec: 12/22/21 10:35 AW [id number]) Physical Therapy Assessment Impairments Impairments Activity Tolerance,Balance, Functional Activities, Functional Mobility,Gait,Pain, Posture,ROM,Soft Tissue Mobility,Strength Goals balance Fpc Goal (LTG) pt will be able to do SLS on LLE w/o lat lean or shear . 08/25-improved w/cue and use of mirror 11/19-can in mirror but not w/o 12/22 - self-awareness of pelvic level improves with mirror LTG Duration 01/19 strength Short Term Goal (STG) Pt will be indep w/hEP STG Duration achieved District Traffic Chief Goal (LTG) Pt will have at least 4/5 on LPM in all planes and 5/5 MMT w/rotations and hip flex w/o pain. 08/25-no change 11/19-improved overall LTG Duration 02/18 pain District Traffic Chief Goal (LTG) Pt will report no knee pain w/ his typical activties including running, going up steps 2 at a time, jumping and sitting in figure 4 position 08/25-no change 11/19-still sore w/up/down stairs for work and running on boat, figure 4 stilluncomfortable 12/22 - minimal change LTG Duration 02/18 Progress Towards Goals Progress Towards Goals Slow Progress due to Medical Issues Progress Comments Pt is slowly improving in postural awareness and single leg stance but still has some lateral shear during SLS. Clicking and knee pain continue with daily activities . Pt to have MRI today. Assessment Summary Assessment Pt tolerated increase in hip loading, single leg stance challenges, and core stability training well. He continues to have knee clicking and pain with gait, squat, and other functional activities. Feel pt would benefit from continued PT to progress a strength program and improve lower extremity function. Physical Therapy Plan Frequency and Duration Frequency of Treatment 1-2x/Week Plan of Care Start Date 11/19/21 Plan of Care End Date 02/18/22 Therapeutic Interventions Therapeutic Interventions Aquatic Therapy,Balance Training,Gait Training,Home Exercise Program,Joint Mobilizations,Manual Therapy, Neuromuscular Re-education, Patient/Caregiver Education, Self-Care/Home Management,Soft Tissue Mobilization,Taping, Therapeutic Activities, Therapeutic Exercises Modalities Cold Pack/Ice Massage,Electric Stimulation,Hot Packs, Infrared Therapy,Ultrasound Next Visit Focus/Plan Next Note Type Treatment Note Next Visit Plan cont working SL stability/ strength, give active HS stretch to door w/sam PF/DF, work manually on LLE restrictions
--- NOTE | 2021-12-24 18:33 | PT.OTN ---
Current Diagnoses Other chronic pain (12/24/21) Pain in left knee (12/24/21) Physical Therapy Treatment Note PT-OP-A Visit Information Start: 08/04/21 11:45 Freq: Status: Active Protocol: Document 12/24/21 13:49 [facility] (Rec: 12/24/21 18:33 [facility] [id number]) Out-Patient Physical Therapy Visit Information Visit Information Visit Type Treatment Note Visit Start Time 14:35 Visit Stop Time 15:15 Total Visit Minutes 40 Visit Number 13 Number of REGISTERED RADIOGRAPHER Visits 0 PT-OP-B Current Condition Start: 08/04/21 11:45 Freq: Status: Active Protocol: Document 08/04/21 16:53 [facility] (Rec: 08/04/21 18:31 [facility] [id number]) Current Condition History of Current Condition Current Complaints L knee pain History of Current Condition Pt reports [place] the [place] and his knee was killing him the next day. In May, he was so stiff and painful and couldn't barely move his knee and was sonny up . Pt reports a nusance pain in the back of his knee and has been clicking ant. He is up/ down 10 flights of stairs about 10x/day and has to run/ up/down. Pt reports figure 4 sit aggrevates his knee the most after 20-30 min of sitting. He wonders if hm sitting like that for the plane rides irritated the knee . Pt rides his pel[place] pretty often, but hasn't recenlty d/t knee bothering him. Pt started riding in September. Pt denies swelling initially. Pt reprots it's been only the small bouts of time that it is really bad where he can't move it. Pt reports pain was about a 6/10 initially and had to do step to w/stairs for a while. He got back first week of June. that Pt leaves August 28. Pt reports shoulder surgery years ago but otherwise no other issues. Reports LBP that he sees chiro occ for and often LLE is always shorter and is corrected. Treatment Goals Patient/Caregiver Goals run up/down stairs w/o pain, be able to get into odd spots, avoid a catestrophic knee injury PT-OP-C Subjective Start: 08/04/21 11:45 Freq: Status: Active Protocol: Document 12/24/21 13:49 [facility] (Rec: 12/24/21 18:33 [facility] [id number]) OP-PT Subjective Patient Comments Patient Comments Pt reports he is referred to ortho at [facility] PT-OP-D Balance Start: 08/04/21 11:45 Freq: Status: Active Protocol: Document 11/19/21 08:19 [facility] (Rec: 11/19/21 12:20 [facility] [id number]) Balance Tests Single Limb Standing Single Limb- Right >30 sec Single Limb- Left >30 sec but leans PT-OP-F Manual Assessment Start: 08/04/21 11:45 Freq: Status: Active Protocol: Document 08/04/21 16:53 [facility] (Rec: 08/04/21 18:31 [facility] [id number]) Manual Assessments Soft Tissue Assessment Soft Tissue Mobility Assessment tenderness at one aspect of med jt line L w/heavy palpation, tight HS and calf Joint Mobility Assessment Joint Mobility Assessment R iliac crest higher, PSIS R Post, ER of femur on L>R, IR tibia B, pronated feet B, patella turned out L>R, tracks lat slightly L w/quad engagment, L foot turned out in standing slightly PT-OP-G Mobility & Gait Start: 08/04/21 11:45 Freq: Status: Active Protocol: Document 08/04/21 16:53 [facility] (Rec: 08/04/21 18:31 [facility] [id number]) OP Gait Assessment Comments Gait Comments pt has dec ant depression and post dep L side, inc trunk lat lean w/WB on LLE PT-OP-J Posture/Palpation/Skin Start: 08/04/21 11:45 Freq: Status: Active Protocol: Document 08/04/21 16:53 [facility] (Rec: 08/04/21 18:31 [facility] [id number]) Posture Evaluation Abdias Postural Classification System Lumbar Protective Mechanism Left AP 1 Lumbar Protective Mechanism Right AP 1 Lumbar Protective Mechanism Left PA 2 Lumbar Protective Mechanism Right PA 2 PT-OP-K Range of Motion Start: 08/04/21 11:45 Freq: Status: Active Protocol: Document 11/19/21 08:19 [facility] (Rec: 11/19/21 12:20 [facility] [id number]) Knee Goniometric Range of Motion Knee Left Flexion Active (degrees) 138 Extension Active (degrees) 0 Comments discomfort w/flex post & ant slight discomfort w/ext PT-OP-L Special Tests Start: 08/04/21 11:45 Freq: Status: Active Protocol: Document 08/04/21 16:53 [facility] (Rec: 08/04/21 18:31 [facility] [id number]) Special Tests Knee Special Tests Lilli Test Test Results neg no pain w/ext testing Vanessa's Test Results neg L Posterior Draw Test Results neg L Caesar Test Results B hip flexor & TFL moderate tightness, B mild quad tightness Straight Leg Raise Test Results about 70 deg B but starts feeling tightness around 45 deg on L Comments inc tightness w/DF B, dec tightness w/cervical flex Thessaly Test 20 Degrees Test Results neg L Thessaly Test 5 Degrees Test Results neg L Juan M's Test Test Results mild tightness Varus- 25 Degrees Test Results neg Valgus- 25 Degrees Test Results neg PT-OP-M Strength Start: 08/04/21 11:45 Freq: Status: Active Protocol: Document 11/19/21 08:19 [facility] (Rec: 11/19/21 12:20 [facility] [id number]) Hip Strength Hip Manual Muscle Testing Right Flexion (L2) 5 Normal Extension (S1) 5 Normal Abduction 5 Normal Adduction 5 Normal External Rotation 5 Normal Internal Rotation 5 Normal Left Flexion (L2) 5 Normal Extension (S1) 5 Normal Abduction 5 Normal Adduction 5 Normal External Rotation 4+ Good+ Internal Rotation 5 Normal Comments pain w/ER; dec trunk stability w/hip ext testing Knee Strength Knee Manual Muscle Testing Right Flexion (S2) 5 Normal Extension (L3) 5 Normal Left Flexion (S2) 4 Good Extension (L3) 4+ Good+ Comments pain flex Ankle/Foot Strength Ankle and Foot Manual Muscle Testing Right Dorsiflexion (L4) 5 Normal Plantarflexion (S1) 5 Normal Left Dorsiflexion (L4) 5 Normal Plantarflexion (S1) 5 Normal Comments 20 heel raises B PT-OP-Q Treatments Start: 08/04/21 11:45 Freq: Status: Active Protocol: Document 12/24/21 13:49 [facility] (Rec: 12/24/21 18:33 [facility] [id number]) Gym Equipment Therapeutic Ball HS curls Ball Size/Color green Body Position Supine Reps/Duration 10 Therapeutic Exercises Standing Exercises step ups Standing Exercise Name step ups alt march Side bilateral Equipment Used BOSU - round side Reps/Minutes 10 SL Standing Exercise Name SL squat Side bilateral Reps/Minutes 15 Comments mirror lunge Standing Exercise Name lat lunges Side bilateral Reps/Minutes 10 squat Side bilateral Resistance bosu black side Reps/Minutes 10 Manual Therapy Treatment Soft Tissue Mobilization knee Body Location L med Mobilization Type Strumming Comments pes anscerine and jt line adductors Body Location L Mobilization Type Rolling Intensity/Depth Moderate Body Position Hooklying HS Body Location L Mobilization Type Myofascial Release,Rolling, Strumming Intensity/Depth Moderate Joint Mobilizations tibfem Comments AP FM tib; med tib FM; IR tibia FM PT-OP-T Assessment and Plan Start: 08/04/21 11:45 Freq: Status: Active Protocol: Document 12/24/21 13:49 [facility] (Rec: 12/24/21 18:33 [facility] [id number]) Physical Therapy Assessment Goals balance Debeaker Goal (LTG) pt will be able to do SLS on LLE w/o lat lean or shear . 08/25-improved w/cue and use of mirror 11/19-can in mirror but not w/o 12/22 - self-awareness of pelvic level improves with mirror LTG Duration 01/19 strength Short Term Goal (STG) Pt will be indep w/hEP STG Duration achieved Usp Goal (LTG) Pt will have at least 4/5 on LPM in all planes and 5/5 MMT w/rotations and hip flex w/o pain. 08/25-no change 11/19-improved overall LTG Duration 02/18 pain Debeaker Goal (LTG) Pt will report no knee pain w/ his typical activties including running, going up steps 2 at a time, jumping and sitting in figure 4 position 6-no change 11/19-still sore w/up/down stairs for work and running on boat, figure 4 stilluncomfortable 12/22 - minimal change LTG Duration 02/18 Assessment Summary Assessment Pt did well with exercises and is imrpoving w/stability on uneven surfaces overall. Pain noted w/HS curls w/ball today Physical Therapy Plan Frequency and Duration Frequency of Treatment 1-2x/Week Plan of Care Start Date 11/19/21 Plan of Care End Date 02/18/22 Next Visit Focus/Plan Next Note Type Treatment Note Next Visit Plan cont working SL stability/ strength, give active HS stretch to door w/sam PF/DF, work manually on LLE restrictions
--- NOTE | 2021-12-29 10:35 | PT.OTN ---
Current Diagnoses Other chronic pain (12/29/21) Pain in left knee (12/29/21) Physical Therapy Treatment Note PT-OP-A Visit Information Start: 08/04/21 11:45 Freq: Status: Active Protocol: Document 12/29/21 09:51 [facility] (Rec: 12/29/21 10:35 [facility] [id number]) Out-Patient Physical Therapy Visit Information Visit Information Visit Type Treatment Note Visit Start Time 09:50 Visit Stop Time 10:30 Total Visit Minutes 40 Visit Number 14 Number of INTERMEDIATE SCHOOL TEACHER Visits 0 PT-OP-B Current Condition Start: 08/04/21 11:45 Freq: Status: Active Protocol: Document 08/04/21 16:53 [facility] (Rec: 08/04/21 18:31 [facility] [id number]) Current Condition History of Current Condition Current Complaints L knee pain History of Current Condition Pt reports [place] the [place] Apr 27 and his knee was killing him the next day. In May, he was so stiff and painful and couldn't barely move his knee and was sonny up . Pt reports a nusance pain in the back of his knee and has been clicking ant. He is up/ down 10 flights of stairs about 10x/day and has to run/ up/down. Pt reports figure 4 sit aggrevates his knee the most after 20-30 min of sitting. He wonders if hm sitting like that for the plane rides irritated the knee . Pt rides his pelaton pretty often, but hasn't recenlty d/t knee bothering him. Pt started riding in September. Pt denies swelling initially. Pt reprots it's been only the small bouts of time that it is really bad where he can't move it. Pt reports pain was about a 6/10 initially and had to do step to w/stairs for a while. He got back first week of June. that Pt leaves August 28. Pt reports shoulder surgery years ago but otherwise no other issues. Reports LBP that he sees chiro occ for and often LLE is always shorter and is corrected. Treatment Goals Patient/Caregiver Goals run up/down stairs w/o pain, be able to get into odd spots, avoid a catestrophic knee injury PT-OP-C Subjective Start: 08/04/21 11:45 Freq: Status: Active Protocol: Document 12/29/21 09:51 [facility] (Rec: 12/29/21 10:35 [facility] [id number]) OP-PT Subjective Patient Comments Patient Comments Pt sees ortho at end of the month PT-OP-D Balance Start: 08/04/21 11:45 Freq: Status: Active Protocol: Document 11/19/21 08:19 [facility] (Rec: 11/19/21 12:20 [facility] [id number]) Balance Tests Single Limb Standing Single Limb- Right >30 sec Single Limb- Left >30 sec but leans PT-OP-F Manual Assessment Start: 08/04/21 11:45 Freq: Status: Active Protocol: Document 08/04/21 16:53 [facility] (Rec: 08/04/21 18:31 [facility] [id number]) Manual Assessments Soft Tissue Assessment Soft Tissue Mobility Assessment tenderness at one aspect of med jt line L w/heavy palpation, tight HS and calf Joint Mobility Assessment Joint Mobility Assessment R iliac crest higher, PSIS R Post, ER of femur on L>R, IR tibia B, pronated feet B, patella turned out L>R, tracks lat slightly L w/quad engagment, L foot turned out in standing slightly PT-OP-G Mobility & Gait Start: 08/04/21 11:45 Freq: Status: Active Protocol: Document 08/04/21 16:53 [facility] (Rec: 08/04/21 18:31 [facility] [id number]) OP Gait Assessment Comments Gait Comments pt has dec ant depression and post dep L side, inc trunk lat lean w/WB on LLE PT-OP-J Posture/Palpation/Skin Start: 08/04/21 11:45 Freq: Status: Active Protocol: Document 08/04/21 16:53 [facility] (Rec: 08/04/21 18:31 [facility] [id number]) Posture Evaluation Abdias Postural Classification System Lumbar Protective Mechanism Left AP 1 Lumbar Protective Mechanism Right AP 1 Lumbar Protective Mechanism Left PA 2 Lumbar Protective Mechanism Right PA 2 PT-OP-K Range of Motion Start: 08/04/21 11:45 Freq: Status: Active Protocol: Document 11/19/21 08:19 [facility] (Rec: 11/19/21 12:20 [facility] [id number]) Knee Goniometric Range of Motion Knee Left Flexion Active (degrees) 138 Extension Active (degrees) 0 Comments discomfort w/flex post & ant slight discomfort w/ext PT-OP-L Special Tests Start: 08/04/21 11:45 Freq: Status: Active Protocol: Document 08/04/21 16:53 [facility] (Rec: 08/04/21 18:31 [facility] [id number]) Special Tests Knee Special Tests Lilli Test Test Results neg no pain w/ext testing Vanessa's Test Results neg L Posterior Draw Test Results neg L Caesar Test Results B hip flexor & TFL moderate tightness, B mild quad tightness Straight Leg Raise Test Results about 70 deg B but starts feeling tightness around 45 deg on L Comments inc tightness w/DF B, dec tightness w/cervical flex Thessaly Test 20 Degrees Test Results neg L Thessaly Test 5 Degrees Test Results neg L Juan M's Test Test Results mild tightness Varus- 25 Degrees Test Results neg Valgus- 25 Degrees Test Results neg PT-OP-M Strength Start: 08/04/21 11:45 Freq: Status: Active Protocol: Document 11/19/21 08:19 [facility] (Rec: 11/19/21 12:20 [facility] [id number]) Hip Strength Hip Manual Muscle Testing Right Flexion (L2) 5 Normal Extension (S1) 5 Normal Abduction 5 Normal Adduction 5 Normal External Rotation 5 Normal Internal Rotation 5 Normal Left Flexion (L2) 5 Normal Extension (S1) 5 Normal Abduction 5 Normal Adduction 5 Normal External Rotation 4+ Good+ Internal Rotation 5 Normal Comments pain w/ER; dec trunk stability w/hip ext testing Knee Strength Knee Manual Muscle Testing Right Flexion (S2) 5 Normal Extension (L3) 5 Normal Left Flexion (S2) 4 Good Extension (L3) 4+ Good+ Comments pain flex Ankle/Foot Strength Ankle and Foot Manual Muscle Testing Right Dorsiflexion (L4) 5 Normal Plantarflexion (S1) 5 Normal Left Dorsiflexion (L4) 5 Normal Plantarflexion (S1) 5 Normal Comments 20 heel raises B PT-OP-Q Treatments Start: 08/04/21 11:45 Freq: Status: Active Protocol: Document 12/29/21 09:51 [facility] (Rec: 12/29/21 10:35 [facility] [id number]) Therapeutic Exercises Standing Exercises jump Standing Exercise Name in mirrro working on soft knees Side bilateral Reps/Minutes 10 SL Standing Exercise Name SL squat Side bilateral Reps/Minutes 10 Comments mirror lunge Standing Exercise Name 1.lat lunges 2.fwd Side bilateral Reps/Minutes 10 ea Comments in mirro Manual Therapy Treatment Soft Tissue Mobilization ITB Body Location L Mobilization Type Rolling,Strumming Intensity/Depth Moderate Body Position Supine Comments w/rot adductors Body Location L Mobilization Type Rolling Intensity/Depth Moderate Body Position Hooklying Comments w/rot & knee ext quad Body Location L lat & quad tendon & VMO Mobilization Type Rolling,Strumming Intensity/Depth Moderate Comments w/quad set Joint Mobilizations hip Joint L IR FM PT-OP-T Assessment and Plan Start: 08/04/21 11:45 Freq: Status: Active Protocol: Document 12/29/21 09:51 [facility] (Rec: 12/29/21 10:35 [facility] [id number]) Physical Therapy Assessment Goals balance Half-Way Goal (LTG) pt will be able to do SLS on LLE w/o lat lean or shear . 08/25-improved w/cue and use of mirror 11/19-can in mirror but not w/o 12/22 - self-awareness of pelvic level improves with mirror LTG Duration 01/19 strength Short Term Goal (STG) Pt will be indep w/hEP STG Duration achieved Half-Way Goal (LTG) Pt will have at least 4/5 on LPM in all planes and 5/5 MMT w/rotations and hip flex w/o pain. 6-no change 11/19-improved overall LTG Duration 02/18 pain Fresh Foods Technician Goal (LTG) Pt will report no knee pain w/ his typical activties including running, going up steps 2 at a time, jumping and sitting in figure 4 position 6-no change 11/19-still sore w/up/down stairs for work and running on boat, figure 4 stilluncomfortable 12/22 - minimal change LTG Duration 02/18 Assessment Summary Assessment Pt improved jumping mechanics after cueing as he typically landed w/hard knees. He had imrpoved L femoral rotation IR after manual which dec pain in back when IR. Physical Therapy Plan Frequency and Duration Frequency of Treatment 1-2x/Week Plan of Care Start Date 11/19/21 Plan of Care End Date 02/18/22 Next Visit Focus/Plan Next Note Type Treatment Note Next Visit Plan cont working SL stability/ strength, give active HS stretch to door w/sam PF/DF, work manually on LLE restrictions
--- NOTE | 2021-12-31 11:52 | PT.OTN ---
Current Diagnoses Other chronic pain (12/31/21) Pain in left knee (12/31/21) Physical Therapy Treatment Note PT-OP-A Visit Information Start: 08/04/21 11:45 Freq: Status: Active Protocol: Document 12/31/21 07:45 [facility] (Rec: 12/31/21 11:52 [facility] [id number]) Out-Patient Physical Therapy Visit Information Visit Information Visit Type Treatment Note Visit Start Time 09:05 Visit Stop Time 09:45 Total Visit Minutes 40 Visit Number 15 Number of MAIL CLERKS SUPERVISOR Visits 0 PT-OP-B Current Condition Start: 08/04/21 11:45 Freq: Status: Active Protocol: Document 08/04/21 16:53 [facility] (Rec: 08/04/21 18:31 [facility] [id number]) Current Condition History of Current Condition Current Complaints L knee pain History of Current Condition Pt reports he [place] back to the boat in Apr 27 and his knee was killing him the next day. In May, he was so stiff and painful and couldn't barely move his knee and was sonny up . Pt reports a nusance pain in the back of his knee and has been clicking ant. He is up/ down 10 flights of stairs about 10x/day and has to run/ up/down. Pt reports figure 4 sit aggrevates his knee the most after 20-30 min of sitting. He wonders if hm sitting like that for the plane rides irritated the knee . Pt rides his pel[place] pretty often, but hasn't recenlty d/t knee bothering him. Pt started riding in September. Pt denies swelling initially. Pt reprots it's been only the small bouts of time that it is really bad where he can't move it. Pt reports pain was about a 6/10 initially and had to do step to w/stairs for a while. He got back first week of June. that Pt leaves August 28. Pt reports shoulder surgery years ago but otherwise no other issues. Reports LBP that he sees chiro occ for and often LLE is always shorter and is corrected. Treatment Goals Patient/Caregiver Goals run up/down stairs w/o pain, be able to get into odd spots, avoid a catestrophic knee injury PT-OP-C Subjective Start: 08/04/21 11:45 Freq: Status: Active Protocol: Document 12/31/21 07:45 [facility] (Rec: 12/31/21 11:52 [facility] [id number]) OP-PT Subjective Patient Comments Patient Comments Pt verbalizes understanding of exercises Patient Reported Progress Same PT-OP-D Balance Start: 08/04/21 11:45 Freq: Status: Active Protocol: Document 11/19/21 08:19 [facility] (Rec: 11/19/21 12:20 [facility] [id number]) Balance Tests Single Limb Standing Single Limb- Right >30 sec Single Limb- Left >30 sec but leans PT-OP-F Manual Assessment Start: 08/04/21 11:45 Freq: Status: Active Protocol: Document 08/04/21 16:53 [facility] (Rec: 08/04/21 18:31 [facility] [id number]) Manual Assessments Soft Tissue Assessment Soft Tissue Mobility Assessment tenderness at one aspect of med jt line L w/heavy palpation, tight HS and calf Joint Mobility Assessment Joint Mobility Assessment R iliac crest higher, PSIS R Post, ER of femur on L>R, IR tibia B, pronated feet B, patella turned out L>R, tracks lat slightly L w/quad engagment, L foot turned out in standing slightly PT-OP-G Mobility & Gait Start: 08/04/21 11:45 Freq: Status: Active Protocol: Document 08/04/21 16:53 [facility] (Rec: 08/04/21 18:31 [facility] [id number]) OP Gait Assessment Comments Gait Comments pt has dec ant depression and post dep L side, inc trunk lat lean w/WB on LLE PT-OP-J Posture/Palpation/Skin Start: 08/04/21 11:45 Freq: Status: Active Protocol: Document 12/31/21 07:45 [facility] (Rec: 12/31/21 11:52 [facility] [id number]) Posture Evaluation Abdias Postural Classification System Lumbar Protective Mechanism Left AP 3 Lumbar Protective Mechanism Right AP 3 Lumbar Protective Mechanism Left PA 3 Lumbar Protective Mechanism Right PA 4 PT-OP-K Range of Motion Start: 08/04/21 11:45 Freq: Status: Active Protocol: Document 11/19/21 08:19 [facility] (Rec: 11/19/21 12:20 [facility] [id number]) Knee Goniometric Range of Motion Knee Left Flexion Active (degrees) 138 Extension Active (degrees) 0 Comments discomfort w/flex post & ant slight discomfort w/ext PT-OP-L Special Tests Start: 08/04/21 11:45 Freq: Status: Active Protocol: Document 08/04/21 16:53 [facility] (Rec: 08/04/21 18:31 [facility] [id number]) Special Tests Knee Special Tests Lilli Test Test Results neg no pain w/ext testing Vanessa's Test Results neg L Posterior Draw Test Results neg L Caesar Test Results B hip flexor & TFL moderate tightness, B mild quad tightness Straight Leg Raise Test Results about 70 deg B but starts feeling tightness around 45 deg on L Comments inc tightness w/DF B, dec tightness w/cervical flex Thessaly Test 20 Degrees Test Results neg L Thessaly Test 5 Degrees Test Results neg L Juan M's Test Test Results mild tightness Varus- 25 Degrees Test Results neg Valgus- 25 Degrees Test Results neg PT-OP-M Strength Start: 08/04/21 11:45 Freq: Status: Active Protocol: Document 12/31/21 07:45 [facility] (Rec: 12/31/21 11:52 [facility] [id number]) Hip Strength Hip Manual Muscle Testing Right Flexion (L2) 5 Normal Extension (S1) 5 Normal Abduction 5 Normal Adduction 5 Normal External Rotation 5 Normal Internal Rotation 5 Normal Left Flexion (L2) 5 Normal Extension (S1) 5 Normal Abduction 5 Normal Adduction 5 Normal External Rotation 5 Normal Internal Rotation 5 Normal Comments pain w/ER Knee Strength Knee Manual Muscle Testing Right Flexion (S2) 5 Normal Extension (L3) 5 Normal Left Flexion (S2) 5 Normal Extension (L3) 5 Normal Ankle/Foot Strength Ankle and Foot Manual Muscle Testing Right Dorsiflexion (L4) 5 Normal Plantarflexion (S1) 5 Normal Left Dorsiflexion (L4) 5 Normal Plantarflexion (S1) 5 Normal Comments 20 heel raises B PT-OP-Q Treatments Start: 08/04/21 11:45 Freq: Status: Active Protocol: Document 12/31/21 07:45 [facility] (Rec: 12/31/21 11:52 [facility] [id number]) Manual Therapy Treatment Joint Mobilizations ankle Comments calcaneal distraction & lat glide talar distraction & lat glide & AP cuneiforms gapping FM navicular med FM cubiod lat FM tibfib Joint distal AP FM sacrum Joint R UPA innominate Joint L caudal & IR FM hip Joint L IR FM PT-OP-T Assessment and Plan Start: 08/04/21 11:45 Freq: Status: Active Protocol: Document 12/31/21 07:45 [facility] (Rec: 12/31/21 11:52 [facility] [id number]) Physical Therapy Assessment Goals balance Mcfp Goal (LTG) pt will be able to do SLS on LLE w/o lat lean or shear . 08/25-improved w/cue and use of mirror 11/19-can in mirror but not w/o 12/22 - self-awareness of pelvic level improves with mirror LTG Duration achieved strength Short Term Goal (STG) Pt will be indep w/hEP STG Duration achieved Mcfp Goal (LTG) Pt will have at least 4/5 on LPM in all planes and 5/5 MMT w/rotations and hip flex w/o pain. 08/25-no change 11/19-improved overall 12/31-good strength but pain w /rot & LPM improved LTG Duration 02/18 pain Log Manager Goal (LTG) Pt will report no knee pain w/ his typical activties including running, going up steps 2 at a time, jumping and sitting in figure 4 position 08/25-no change 11/19-still sore w/up/down stairs for work and running on boat, figure 4 stilluncomfortable 12/22 - minimal change LTG Duration 02/18 Assessment Summary Assessment Pt is doing well with stregth but still has pain w/load in ER. He had improved knee tracking w/manual today starting w/excessive ER to imrpoved to over 2nd toe. Pt to cont HEP until seeing ortho for plan. Physical Therapy Plan Frequency and Duration Frequency of Treatment 1-2x/Week Plan of Care Start Date 11/19/21 Plan of Care End Date 02/18/22 Next Visit Focus/Plan Next Note Type Treatment Note Next Visit Plan cont if ortho encourages cont otherwise DC
--- NOTE | 2022-02-24 11:55 | PT.OPDS ---
Current Diagnoses Other chronic pain (12/31/21) Pain in left knee (12/31/21) Visit Care Team Role Provider Type Doug López DO Attending Provider Physician Family Provider Primary Care Provider Referring Provider Specialty: Family Practice Address: [address] [place] [address], [facility] Email: Visit Number Visit Number 15 Discharge Summary PT-OP-B Current Condition Start: 08/04/21 11:45 Freq: Status: Active Protocol: Document 08/04/21 16:53 [facility] (Rec: 08/04/21 18:31 [facility] [id number]) Current Condition History of Current Condition Current Complaints L knee pain History of Current Condition Pt reports he [place] back to the boat in Apr 27 and his knee was killing him the next day. In May, he was so stiff and painful and couldn't barely move his knee and was sonny up . Pt reports a nusance pain in the back of his knee and has been clicking ant. He is up/ down 10 flights of stairs about 10x/day and has to run/ up/down. Pt reports figure 4 sit aggrevates his knee the most after 20-30 min of sitting. He wonders if hm sitting like that for the plane rides irritated the knee . Pt rides his pel[place] pretty often, but hasn't recenlty d/t knee bothering him. Pt started riding in September. Pt denies swelling initially. Pt reprots it's been only the small bouts of time that it is really bad where he can't move it. Pt reports pain was about a 6/10 initially and had to do step to w/stairs for a while. He got back first week of June. that Pt leaves August 28. Pt reports shoulder surgery years ago but otherwise no other issues. Reports LBP that he sees chiro occ for and often LLE is always shorter and is corrected. Treatment Goals Patient/Caregiver Goals run up/down stairs w/o pain, be able to get into odd spots, avoid a catestrophic knee injury PT-OP-C Subjective Start: 08/04/21 11:45 Freq: Status: Active Protocol: Document 12/31/21 07:45 [facility] (Rec: 12/31/21 11:52 [facility] [id number]) OP-PT Subjective Patient Comments Patient Comments Pt verbalizes understanding of exercises Patient Reported Progress Same PT-OP-D Balance Start: 08/04/21 11:45 Freq: Status: Active Protocol: Document 11/19/21 08:19 [facility] (Rec: 11/19/21 12:20 [facility] [id number]) Balance Tests Single Limb Standing Single Limb- Right >30 sec Single Limb- Left >30 sec but leans PT-OP-F Manual Assessment Start: 08/04/21 11:45 Freq: Status: Active Protocol: Document 08/04/21 16:53 [facility] (Rec: 08/04/21 18:31 [facility] [id number]) Manual Assessments Soft Tissue Assessment Soft Tissue Mobility Assessment tenderness at one aspect of med jt line L w/heavy palpation, tight HS and calf Joint Mobility Assessment Joint Mobility Assessment R iliac crest higher, PSIS R Post, ER of femur on L>R, IR tibia B, pronated feet B, patella turned out L>R, tracks lat slightly L w/quad engagment, L foot turned out in standing slightly PT-OP-G Mobility & Gait Start: 08/04/21 11:45 Freq: Status: Active Protocol: Document 08/04/21 16:53 [facility] (Rec: 08/04/21 18:31 [facility] [id number]) OP Gait Assessment Comments Gait Comments pt has dec ant depression and post dep L side, inc trunk lat lean w/WB on LLE PT-OP-J Posture/Palpation/Skin Start: 08/04/21 11:45 Freq: Status: Active Protocol: Document 12/31/21 07:45 [facility] (Rec: 12/31/21 11:52 [facility] [id number]) Posture Evaluation [facility] Postural Classification System Lumbar Protective Mechanism Left AP 3 Lumbar Protective Mechanism Right AP 3 Lumbar Protective Mechanism Left PA 3 Lumbar Protective Mechanism Right PA 4 PT-OP-K Range of Motion Start: 08/04/21 11:45 Freq: Status: Active Protocol: Document 11/19/21 08:19 [facility] (Rec: 11/19/21 12:20 [facility] [id number]) Knee Goniometric Range of Motion Knee Left Flexion Active (degrees) 138 Extension Active (degrees) 0 Comments discomfort w/flex post & ant slight discomfort w/ext PT-OP-L Special Tests Start: 08/04/21 11:45 Freq: Status: Active Protocol: Document 08/04/21 16:53 [facility] (Rec: 08/04/21 18:31 [facility] [id number]) Special Tests Knee Special Tests Lilli Test Test Results neg no pain w/ext testing Vanessa's Test Results neg L Posterior Draw Test Results neg L Caesar Test Results B hip flexor & TFL moderate tightness, B mild quad tightness Straight Leg Raise Test Results about 70 deg B but starts feeling tightness around 45 deg on L Comments inc tightness w/DF B, dec tightness w/cervical flex Thessaly Test 20 Degrees Test Results neg L Thessaly Test 5 Degrees Test Results neg L Juan M's Test Test Results mild tightness Varus- 25 Degrees Test Results neg Valgus- 25 Degrees Test Results neg PT-OP-M Strength Start: 08/04/21 11:45 Freq: Status: Active Protocol: Document 12/31/21 07:45 [facility] (Rec: 12/31/21 11:52 [facility] [id number]) Hip Strength Hip Manual Muscle Testing Right Flexion (L2) 5 Normal Extension (S1) 5 Normal Abduction 5 Normal Adduction 5 Normal External Rotation 5 Normal Internal Rotation 5 Normal Left Flexion (L2) 5 Normal Extension (S1) 5 Normal Abduction 5 Normal Adduction 5 Normal External Rotation 5 Normal Internal Rotation 5 Normal Comments pain w/ER Knee Strength Knee Manual Muscle Testing Right Flexion (S2) 5 Normal Extension (L3) 5 Normal Left Flexion (S2) 5 Normal Extension (L3) 5 Normal Ankle/Foot Strength Ankle and Foot Manual Muscle Testing Right Dorsiflexion (L4) 5 Normal Plantarflexion (S1) 5 Normal Left Dorsiflexion (L4) 5 Normal Plantarflexion (S1) 5 Normal Comments 20 heel raises B PT-OP-T Assessment and Plan Start: 08/04/21 11:45 Freq: Status: Active Protocol: Document 02/24/22 11:53 [facility] (Rec: 02/24/22 11:55 [facility] [id number]) Physical Therapy Assessment Goals balance Correction Goal (LTG) pt will be able to do SLS on LLE w/o lat lean or shear . 6/7-improved w/cue and use of mirror 11/19-can in mirror but not w/o 10/4 - self-awareness of pelvic level improves with mirror LTG Duration achieved strength Short Term Goal (STG) Pt will be indep w/hEP STG Duration achieved Immigration Inspector Goal (LTG) Pt will have at least 4/5 on LPM in all planes and 5/5 MMT w/rotations and hip flex w/o pain. 6-no change 11/19-improved overall 12/31-good strength but pain w /rot & LPM improved LTG Duration 02/18 pain Immigration Inspector Goal (LTG) Pt will report no knee pain w/ his typical activties including running, going up steps 2 at a time, jumping and sitting in figure 4 position 08/25-no change 11/19-still sore w/up/down stairs for work and running on boat, figure 4 stilluncomfortable 12/22 - minimal change LTG Duration 02/18 Assessment Summary Assessment Pt was to follow up w/PT as needed after ortho appt and has not scheduled anything further since ortho appt that was scheduled 01/13. At this time DC as pt has not been seen since 12/31 and has not called to schedule further visits. Physical Therapy Plan Discharge Physical Therapy Discharge Reasons No Longer Attending PT
== END 2022-02-26 09:21 | disposition home or self-care (01) ==
LOC: PHYS 09:00
PROVIDERS: Family Provider Family Medicine; PCP Family Medicine; Referring Provider Family Medicine; Visit Provider Family Medicine
DX: M25.562 Pain in left knee (principal); G89.29 Other chronic pain
CPT/HCPCS: 97110; 97140; 97161; 97535; 97750

== ENCOUNTER → 2022-11-02 12:15 | Outpatient (CLI) | payer BC, SELFPAY ==
[2022-11-02 12:59] LABS: Add Manual Diff / Slide Review NO; Basophils Absolute Auto 0 /uL (0-100); Basophils Percent Auto 0.1 % (0-2); Eosinophils Absolute Auto 0 /uL (0-450); Eosinophils Percent Auto 0.8 % (2-4); Hematocrit 40.7 % (41-53); Hemoglobin 14.3 g/dL (13.5-17.5); Lymphocytes Absolute Auto 1200 /uL (1100-4500); Mean Corpuscular HGB Conc 35.1 % (30-36); Mean Corpuscular Hemoglobin 29.9 PG (26-34); Mean Corpuscular Volume 85.3 fL (80-100); Monocytes Absolute Auto 600 /uL (0-900); Monocytes Percent Auto 11.3 % (3-14); Neutrophils Absolute Auto 3200 /uL (1500-7000); Neutrophils Percent Auto 63.8 % (50-75); Platelet Count 252 X10^3/uL (150-400); Red Blood Cell Count 4.77 X10^6/uL (4.5-5.9); Red Cell Distribution Width 12.7 % (11.6-14.8)
[2022-11-02 13:21] LABS: Alanine Aminotransferase 32 IU/L (<50); Albumin 4.6 g/dL (3.5-5.0); Albumin Globulin Ratio 1.6 (1.0-2.8); Alkaline Phosphatase 53 U/L (38-126); Aspartate Aminotransferase 31 IU/L (17-59); BUN Creatinine Ratio 15.6 (6-22); Blood Urea Nitrogen 14 mg/dL (9-20); Calcium 10.3 mg/dL (8.4-10.2); Carbon Dioxide 32 mmol/L (22-32); Chloride 98 mmol/L (98-107); Cholesterol 262 mg/dL (140-199); Estimated Glomerular Filt Rate > 60 mL/min (>60); Globulin 2.9 g/dL (1.7-4.1); Glucose 94 mg/dL (70-100); HDL Cholesterol 57 mg/dL (40-60); HEMOLYSIS < 15 (0-50); LDL Cholesterol Calculated 188 mg/dL (<100); Potassium 4.6 mmol/L (3.4-5.1); Sodium 135 mmol/L (137-145); Total Protein 7.5 g/dL (6.3-8.2); Triglycerides 85 mg/dL (35-150)
[2022-11-10 09:33] LABS: Percent Free Testosterone 2.19 % (1.50-4.20); Testosterone Free 7.52 ng/dL (5.00-21.00); Testosterone Total 343.3 ng/dL (264.0-916.0)
== END ==
PROVIDERS: Family Provider Family Medicine; PCP Family Medicine; Referring Provider Family Medicine; Visit Provider Family Medicine
DX: E78.5 Hyperlipidemia, unspecified (principal); I10 Essential (primary) hypertension
CPT/HCPCS: 36415; 80053; 80061; 84402; 84403; 85025

== ENCOUNTER → 2022-12-20 06:58 | Outpatient (CLI) | payer BC, SELFPAY ==
--- NOTE | 2022-12-20 06:59 | DI.ECHO.S_ITS ---
[facility] +---------+ : : [address] : : : : [id number] : : : : Phone: [phone]+ Echocardiogram Report + + :Name: MÓNICA BUSTILLO Study Date: 12/20/2022 Height: 70 in : :[facility] ReadingLocation: Weight: 195 lb : : Gender: Male BSA: 2.1 m2 : :: 1985 Age: 37 yrs BP: 130/88 mmHg: :Reason For Study: FAMILY HISTORY OF ISCHEMIC HEART DISEASE : :Ordering Physician: MIRELLA YANESPerformed By: Sigrid Mcguire : :Referring: MIRELLA YANES : + + Interpretation Summary Normal left ventricle size with ejection fraction 55-60%. No valvular abnormality. Comparison is made with the echocardiogram of 08/03/2012, no significant change. Procedure: A two-dimensional transthoracic echocardiogram with color flow and Doppler was performed. The study quality was technically adequate. Comparison is made with the echocardiogram of 08/03/2012. The patient was in sinus rhythm with heart rates between 58-70 bpm during the exam. Left Ventricle: The left ventricle is normal in size and wall thickness. The ejection fraction is estimated to be 55-60%. There are no focal wall motion abnormalities. Diastolic parameters suggest probable normal left ventricular diastolic function and normal filling pressures. Right Ventricle: The right ventricle is normal in size and function. Atria: The left atrial size is normal. Right atrial size is normal. There is no Doppler evidence for an interatrial shunt. Mitral Valve: The mitral valve is normal in structure and function. There is trace mitral regurgitation. Aortic Valve: The aortic valve is trileaflet. The aortic valve opens well. There is no aortic valve stenosis. No aortic regurgitation is present. Tricuspid Valve: The tricuspid valve is normal in structure and function. There is trace tricuspid regurgitation. Pulmonic Valve: The pulmonic valve leaflets are thin and pliable; valve motion is normal. There is no pulmonic valvular regurgitation. Great Vessels: The aortic root is normal size. The dimensions of the ascending aorta are normal. The IVC is of normal diameter and collapses greater than 50% with a sniff. This suggests a low right atrial pressure of 3 mm Hg. Pericardium/ Pleura There is no pericardial effusion. There is no pleural effusion. MMode/2D Measurements & Calculations LVIDd: 5.7 cm LVOT diam: 2.4 cm LVIDs: 3.7 cm Ao root diam: 3.5 cm FS: 34.7 % asc Aorta Diam: 3.1 cm EPSS: 0.64 cm Ao Arch Diam (Prox Trans): 2.6 cm IVSd: 0.84 cm LVPWd: 0.85 cm LV belle. diameter/BSA (cm/m^2): 2.7 LV sys. diameter/BSA (cm/m^2): 1.8 LA A2 area: 19.5 cm2 RA long axis: 4.9 cm LA A4 area: 17.6 cm2 RA area: 14.2 cm2 LA length (vol): 4.8 cm RA vol: 34.9 ml LA vol: 60.4 ml RA : 16.9 ml/m2 LA vol index: 29.2 ml/m2 IVC diam: 1.7 cm RVD1 (basal): 3.6 cm RVD2 (mid): 2.7 cm TAPSE: 2.0 cm Doppler Measurements & Calculations Ao V2 max: 113.3 cm/sec LVOT Max Hal: 88.5 cm/sec Ao V2 mean: 79.4 cm/sec LV V1 max P.1 mmHg Ao max P.1 mmHg LV V1 VTI: 18.1 cm Ao mean P.7 mmHg LASHAWN(I,D): 3.5 cm2 Ao V2 VTI: 23.9 cm LASHAWN(V,D): 3.6 cm2 sev ratio: 0.76 LASHAWN indexed to BSA (cm^2/m^2): 1.7 MV E max hal: 71.8 cm/sec PA V2 max: 101.4 cm/sec MV A max hal: 54.8 cm/sec PA V2 mean: 69.4 cm/sec MV E/A: 1.3 PA mean P.2 mmHg Med Peak E' Hal: 11.8 cm/sec PA pr(Accel): 20.8 mmHg E/E' med: 6.1 Lat Peak E' Hal: 16.6 cm/sec E/E' lat: 4.3 E/e' average: 5.2 MV dec time: 0.22 sec SV([facility]): 84.6 ml Electronically signed by: Rosette Wood on Reading Physician:12/20/2022 06:04 PM
--- NOTE | 2022-12-20 13:26 | DI.RAD.S_ITS ---
PROCEDURE: XR HIP W PEL IF DONE RT 2V INDICATIONS: pain x 2 yrs TECHNIQUE: AP pelvis with lateral view(s) of the right hip(s). COMPARISON: None. FINDINGS: Bones: No fractures or dislocations. Pelvic ring appears intact. Bilateral SI joints and pubic symphysis are congruent. Visualized lower lumbar spine is unremarkable. No suspicious bony lesions. Soft tissues: The visualized bowel gas pattern is normal. No suspicious soft tissue calcifications. IMPRESSION: No acute fracture dislocation. Normal alignment. Dictated by: Marquise Dickerson M.D. on 12/20/2022 at 16:15 Approved by: Marquise Dickerson M.D. on 12/20/2022 at 17:36
== END ==
PROVIDERS: Family Provider Family Medicine; PCP Family Medicine; Referring Provider Family Medicine; Visit Provider Family Medicine
DX: M25.551 Pain in right hip (principal); Z82.49 Family history of ischemic heart disease and other diseases of the circulatory system; Z82.41 Family history of sudden cardiac death
CPT/HCPCS: 73502; 93306

== ENCOUNTER → 2023-03-07 07:39 | Outpatient (CLI) | payer BC, SELFPAY ==
[2023-03-07 10:10] LABS: Cholesterol 261 mg/dL (140-199); HDL Cholesterol 49 mg/dL (40-60); LDL Cholesterol Calculated 188 mg/dL (<100); Triglycerides 122 mg/dL (35-150)
--- NOTE | 2023-03-09 10:41 | DI.NM.S_ITS ---
DATE OF SERVICE: 03/07/2023 PROCEDURE PERFORMED: Exercise treadmill stress test without imaging. ORDERING PROVIDER: Doug López M.D. INDICATIONS: The patient is a 37-year-old, obese male, with hypertension, hyperlipidemia, and a strong family history of coronary disease. FINDINGS: 1. The patient was able to exercise for 13 minutes, 31 seconds on a standard Magdaleno protocol, suggesting good exercise capacity with an FABIENNE of -6%, achieving 14.8 METS. 2. He had a normal heart rate response to exercise, achieving a maximum heart rate of 188 BPM (103% of his predicted maximum). He had a borderline hypertensive blood pressure response with a resting blood pressure of 128/78 increasing to a maximum of 200/70. 3. He had no chest discomfort or anginal symptoms. 4. His resting ECG showed sinus rhythm with normal ST segments except for some early repolarization with J-point elevation. With exercise, there were no significant ST-segment shifts to suggest ischemia. There were no arrhythmias. IMPRESSION: 1. Normal exercise treadmill stress test for ischemia. 2. Good exercise capacity without angina. The patient had a borderline hypertensive blood pressure response to exercise. Drew Olea - FRANCESCA/leanna/CADEN doc#: [id number]/job#: [id number] dd: 03/07/2023 16:50:00 dt: 03/07/2023 23:51:00 DICTATING /COPIES TO: Jonatan Acosta MD; Doug López M.D. COPIES MNE: LAITH;
== END ==
PROVIDERS: Family Provider Family Medicine; PCP Family Medicine; Referring Provider Family Medicine; Visit Provider Family Medicine
DX: E78.5 Hyperlipidemia, unspecified (principal); I10 Essential (primary) hypertension; E66.9 Obesity, unspecified; Z82.49 Family history of ischemic heart disease and other diseases of the circulatory system; Z82.41 Family history of sudden cardiac death
CPT/HCPCS: 36415; 80061; 93017

== ENCOUNTER → 2023-09-16 18:37 | Outpatient (CLI) | payer BC, SELFPAY ==
--- NOTE | 2023-09-16 18:40 | DI.MRI.S_ITS ---
PROCEDURE: MR HIP RT WO CON INDICATIONS: chronic pain after extended PT, chiropractic, and massage TECHNIQUE: Noncontrast coronal T1 spin echo and STIR through the bony pelvis. Coronal and axial T2 fast spin echo with fat saturation, sagittal T1 spin echo, and oblique axial T2 fast spin echo with fat saturation through the hip. COMPARISON: None. FINDINGS: Image quality: Excellent. Bones and joints: Bone marrow of the pelvic ring and proximal femurs show normal signal throughout. No intraosseous lesions or fractures. No avascular necrosis of the femoral heads. The visualized lower lumbar spine appears normally aligned. Tendons and ligaments: Tendinosis involving distal right gluteus medius and minimus tendons at their insertions on greater trochanter is seen. The nearby proximal iliotibial band also appears intact. The iliopsoas tendon appears intact, without adjacent bursal fluid collections or evidence for impingement syndrome. Mild tendinosis also noted involving origins of right hamstring tendons at ischial tuberosity. Labrum and cartilage: There is subtle fraying of superior anterior right hip labrum with T2 hyperintense signal concerning for subtle superior anterior right hip labral tear. Mild thinning of articulating cartilage over right femoral head is also noted. Soft tissues: Visualized muscles demonstrate normal bulk and internal signal. Quadratus femoris muscle demonstrates no internal edema to suggest ischiofemoral impingement. The proximal sciatic neurovascular bundle appears normal adjacent to the hamstring tendons. No free pelvic fluid. Bladder wall thickness is normal. Genitourinary structures and bowel loops appear normal where visualized. IMPRESSION: 1. No marrow edema. No pelvic or hip fracture. No evidence of avascular necrosis of femoral head. 2. Distal right gluteus medius and minimus tendinosis. Tendinosis also seen involving right hamstring tendon origins at ischial tuberosity. No other muscle or tendon signal abnormalities. 3. Suggestion of subtle superior anterior right hip labral tear. Dictated by: Kvng Wagner M.D. on 09/16/2023 at 20:34 Approved by: Kvng Wagner M.D. on 09/16/2023 at 20:36
--- NOTE | 2023-09-16 18:40 | DI.MRI.S_ITS ---
PROCEDURE: MR LUMBAR SPINE WO CON INDICATIONS: chronic pain after extended PT, chiropractic, and massage TECHNIQUE: Noncontrast sagittal T1 spin echo and T2 fast echo, sagittal STIR, and T2 fast spin echo through the lumbar spine. In cases with scoliosis, additional coronal T2 fast spin echo may be performed. COMPARISON: None. FINDINGS: Image quality: Excellent. Alignment and Curvature: There is straightening of normal lumbar lordosis. Bone Marrow: Marrow is of normal overall signal. No acute vertebral body compression fractures. Spinal Cord: Conus medullaris terminates at the L1 level. Visualized cord demonstrates normal signal and size. Paraspinous Soft Tissues: No paravertebral masses. T12-L1: Normal appearance. L1-L2: Normal appearance. L2-L3: Normal appearance. L3-L4: Normal appearance. L4-L5: Loss of disc signal is seen. Broad-based disc bulge and bilateral facet arthrosis is seen with mild central canal stenosis and mild bilateral neural foraminal narrowing slightly worse on the left side. L5-S1: Loss of disc signal and disc height. Diffuse disc bulge and bilateral facet arthrosis with mild central canal stenosis and right worse than left bilateral neural foraminal narrowing. IMPRESSION: 1. Degenerative disc disease at L4-5 and L5-S1 levels causing mild central canal stenosis and right worse than left bilateral neural foraminal narrowing as above. 2. No marrow edema. No acute compression fracture or spondylolisthesis. 3. No gross signal abnormality is seen within the conus. Dictated by: Kvng Wagner M.D. on 09/16/2023 at 20:37 Approved by: Kvng Wagner M.D. on 09/16/2023 at 20:38
== END ==
PROVIDERS: Family Provider Family Medicine; PCP Family Medicine; Referring Provider Family Medicine; Visit Provider Family Medicine
DX: M51.16 Intervertebral disc disorders with radiculopathy, lumbar region (principal); M51.17 Intervertebral disc disorders with radiculopathy, lumbosacral region; M48.061 Spinal stenosis, lumbar region without neurogenic claudication; M48.07 Spinal stenosis, lumbosacral region; M25.551 Pain in right hip; G89.29 Other chronic pain
CPT/HCPCS: 72148; 73721

== ENCOUNTER 2023-09-20 10:30 | Outpatient (RCR) | payer BC, SELFPAY ==
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
--- NOTE | 2023-04-11 18:25 | PT.OPPOC ---
Physical, Occupational & Speech Therapy At [facility] Current Diagnoses Pain in right hip (04/11/23) Lumbago with sciatica, right side (04/11/23) Muscle weakness (generalized) (04/11/23) Difficulty in walking, not elsewhere classified (04/11/23) Abnormal posture (04/11/23) Visit Care Team Role Provider Type Doug López DO Family Provider Physician Primary Care Provider Specialty: [facility] Address: [address] [place] [address], [address] Email: Mechelle Caceres DO Attending Provider Physician Referring Provider Specialty: [facility] Address: [address] [place] [address], [address], [place], [address] Email: [email or web address] Plan Of Care PT-OP-T Assessment and Plan Start: 04/06/23 10:45 Freq: Status: Active Protocol: Document 04/11/23 12:59 [facility] (Rec: 04/11/23 13:52 [facility] [id number]) Physical Therapy Assessment Rehab Potential Rehabilitation Potential Good Evaluation Complexity Number of Personal Factors/Comorbidities 3 or More Number of Body Systems Impaired 4 or More Clinical Presentation at Evaluation Evolving Impairments Impairments Activity Tolerance,Balance, Functional Activities, Functional Mobility,Gait,Pain, Posture,ROM,Soft Tissue Mobility,Strength,Transfers Other Concerns Barriers to Rehabilitation 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 LTG Duration 07/03/23 strength Short Term Goal (STG) Pt will be indep w/HEP STG Duration 05/18 Senior Office Support Assistant Sosa Goal (LTG) Pt will score at least 4/5 on LPM in all planes and EFT and at least 5/5 BLE MMT to show improved stabiltiy to allow greater ease w/ADLs LTG Duration 07/03 activities Short Term Goal (STG) Pt will be able to sit up from supine position w/o inc pain. STG Duration 05/18/23 Intermediate Goal (LTG) Pt will be able to go for his typical walks, and transition between all positions w/o inc back or hip pain. LTG Duration 07/04/23 Assessment Summary Assessment Pt presents w/about 1 year ago onset of significant LB and R hip pain that causes him pain throguhout daily functions. 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 Neural/dural tension found on RLE when testing along w/significant ant R hip tightness which may be correlated w/ant scar from old inguinal hernia. He would benefit skilled PT to address gait dysfunctions, dec balace, dec strength and dec ROM in order to dec his pain. Physical Therapy Plan Frequency and Duration Frequency of Treatment 1-2x/week Duration of treatment (weeks) 12 Plan of Care Start Date 04/11/23 Plan of Care End Date 07/04/23 Therapeutic Interventions Therapeutic Interventions Balance Training,Gait Training ,Home Exercise Program,Joint Mobilizations,Manual Therapy, Neuromuscular Re-education, Orthotic/Prosthetic Management ,Patient/Caregiver Education, Self-Care/Home Management,Soft Tissue Mobilization,Taping, Therapeutic Activities, Therapeutic Exercises Modalities Cold Pack/Ice Massage,Electric Stimulation,Hot Packs, Infrared Therapy,Traction- Mechanical,Ultrasound Next Visit Focus/Plan Next Note Type Treatment Note Next Visit Plan review hip ER/IR; work on hip flexion manual mobility, work on hip rotation in hooklying, progress into hip abd/add and ext; work on scar and cecum mobility HEP: supien core,abdominal series, clamshells Plan of Care Dates Plan of Care Start Date 04/11/23 Plan of Care End Date 07/04/23 Electronically Signed by: Fannie Sinclair, PT 04/11/23 4008 If you are in agreement with this Plan of Care, please return a signed and dated copy. I have reviewed this Plan of Care and certify that the skilled therapy services above are required to meet the patient?s needs. Physician Signature Date Printed Name and Credentials Clinical Instructor Signature Printed Name and Credentials
--- NOTE | 2023-04-14 18:32 | PT-OP ANOTE ---
Called pt massage therapist per pt and discussed with her findings of today w/ant tightness and scar tissue restrictions. Discussed HS restrictions btwn mm lam
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
--- NOTE | 2023-05-04 15:13 | PT.OPPOC ---
Physical, Occupational & Speech Therapy At [facility] Current Diagnoses Pain in right hip (05/04/23) Lumbago with sciatica, right side (05/04/23) Muscle weakness (generalized) (05/04/23) Difficulty in walking, not elsewhere classified (05/04/23) Abnormal posture (05/04/23) Visit Care Team Role Provider Type Doug López DO Family Provider Physician Primary Care Provider Specialty: [facility] Practice Address: [address] [place] [address], [id number] Email: Mechelle aCceres DO Attending Provider Physician Referring Provider Specialty: [facility] Address: [address] [place] [address], [address], [place], [address] Email: [email or web address] Plan Of Care PT-OP-T Assessment and Plan Start: 04/06/23 10:45 Freq: Status: Active Protocol: Document 05/04/23 09:51 [facility] (Rec: 05/04/23 15:12 [facility] [id number]) Physical Therapy Assessment Goals balance Concrete Curer Goal (LTG) Pt will be able to do SLS for 30 sec w/o hip or trunk shear/ lean w/o inc pain. 05/04-dec shear but pain on RLE LTG Duration 08/02/23 strength Short Term Goal (STG) Pt will be indep w/HEP STG Duration achieved advancing as able Concrete Curer Goal (LTG) Pt will score at least 4/5 on LPM in all planes and EFT and at least 5/5 BLE MMT to show improved stabiltiy to allow greater ease w/ADLs 05/04-improved LTG Duration 08/02/23 activities Short Term Goal (STG) Pt will be able to sit up from supine position w/o inc pain. 05/04-depends on bed STG Duration 06/28 Concrete Curer Goal (LTG) Pt will be able to go for his typical walks, and transition between all positions w/o inc back or hip pain. 05/04-uphill causes R lat hip pain and feels B HS and calf lights up LTG Duration 08/02/23 Assessment Summary Assessment pt is noting progress w/PT with dec pain, and is showing improved strength. He still has limits in ability to do flex and ER together but is slowly progressing. He is leaving for 2 months on the boat, but should return at the end of June and plan for pt to return to PT at that time. Pt would benefit from cont PT to work on core stabiltiy and hip strength and mobility. Physical Therapy Plan Frequency and Duration Frequency of Treatment 1-2x/week Duration of treatment (weeks) 12 Plan of Care Start Date 05/04/23 Plan of Care End Date 08/02/23 Therapeutic Interventions Therapeutic Interventions Balance Training,Gait Training ,Home Exercise Program,Joint Mobilizations,Manual Therapy, Neuromuscular Re-education, Orthotic/Prosthetic Management ,Patient/Caregiver Education, Self-Care/Home Management,Soft Tissue Mobilization,Taping, Therapeutic Activities, Therapeutic Exercises Modalities Cold Pack/Ice Massage,Electric Stimulation,Hot Packs, Infrared Therapy,Traction- Mechanical,Ultrasound Next Visit Focus/Plan Next Note Type Progress Note Next Visit Plan review exercises as needed work secum and scar tissue, cont to work on hip ability to ER w/flex Plan of Care Dates Plan of Care Start Date 05/04/23 Plan of Care End Date 08/02/23 Electronically Signed by: Fannie Sinclair, PT 05/04/23 1589 If you are in agreement with this Plan of Care, please return a signed and dated copy. I have reviewed this Plan of Care and certify that the skilled therapy services above are required to meet the patient?s needs. Physician Signature Date Printed Name and Credentials Clinical Instructor Signature Printed Name and Credentials
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
--- NOTE | 2023-07-14 16:45 | PT.OPPOC ---
Physical, Occupational & Speech Therapy At [facility] Current Diagnoses Pain in right hip (07/14/23) Lumbago with sciatica, right side (07/14/23) Muscle weakness (generalized) (07/14/23) Difficulty in walking, not elsewhere classified (07/14/23) Abnormal posture (07/14/23) Visit Care Team Role Provider Type Doug López DO Family Provider Physician Primary Care Provider Specialty: [facility] Practice Address: [address] [place] [address], [id number] Email: Mechelle Caceres DO Attending Provider Physician Referring Provider Specialty: [facility] Address: [address] [place] [address], [address], [place], [address] Email: [email or web address] Plan Of Care PT-OP-T Assessment and Plan Start: 04/06/23 10:45 Freq: Status: Active Protocol: Document 07/14/23 14:37 [facility] (Rec: 07/14/23 16:45 [facility] [id number]) Physical Therapy Assessment Goals balance Detector Car Operator Goal (LTG) Pt will be able to do SLS for 30 sec w/o hip or trunk shear/ lean w/o inc pain. 05/04-dec shear but pain on RLE 07/13-no shear but pain LTG Duration 09/21 strength Short Term Goal (STG) Pt will be indep w/HEP STG Duration achieved advancing as able Detector Car Operator Goal (LTG) Pt will score at least 4/5 on LPM in all planes and EFT and at least 5/5 BLE MMT to show improved stabiltiy to allow greater ease w/ADLs 05/04-improved 07/13-improved LTG Duration 7/4 activities Short Term Goal (STG) Pt will be able to sit up from supine position w/o inc pain. 05/04-depends on bed STG Duration achieved Detector Car Operator Goal (LTG) Pt will be able to go for his typical walks, and transition between all positions w/o inc back or hip pain. 05/04-uphill causes R lat hip pain and feels B HS and calf lights up 07/13-returning from boat, pain w/inc time sitting LTG Duration 09/21 Assessment Summary Assessment Pt returns to PT after time off d/t away for work for over 2 months. Compliance w/ stretching, with improved ROM but still cramping feeling and pt returns w/cont pain including pain down ant thigh when sitting extended. 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 Physical Therapy Plan Frequency and Duration Frequency of Treatment 1-2x/week Duration of treatment (weeks) 10 Plan of Care Start Date 07/14/23 Plan of Care End Date 09/22/23 Therapeutic Interventions Therapeutic Interventions Balance Training,Gait Training ,Home Exercise Program,Joint Mobilizations,Manual Therapy, Neuromuscular Re-education, Orthotic/Prosthetic Management ,Patient/Caregiver Education, Self-Care/Home Management,Soft Tissue Mobilization,Taping, Therapeutic Activities, Therapeutic Exercises Modalities Cold Pack/Ice Massage,Electric Stimulation,Hot Packs, Infrared Therapy,Traction- Mechanical,Ultrasound Next Visit Focus/Plan Next Note Type Treatment Note Next Visit Plan work on innominate and hip mobility, progress core facil w/RLE Plan of Care Dates Plan of Care Start Date 07/14/23 Plan of Care End Date 09/22/23 Electronically Signed by: Fannie Sinclair, PT 07/14/23 [id number] If you are in agreement with this Plan of Care, please return a signed and dated copy. I have reviewed this Plan of Care and certify that the skilled therapy services above are required to meet the patient?s needs. Physician Signature Date Printed Name and Credentials Clinical Instructor Signature Printed Name and Credentials
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
== END 2023-09-27 14:30 | disposition home or self-care (01) ==
LOC: PHYS 10:30
PROVIDERS: Family Provider Family Medicine; PCP Family Medicine; Referring Provider Family Medicine; Visit Provider Family Medicine
DX: M54.41 Lumbago with sciatica, right side (principal); M25.551 Pain in right hip; M62.81 Muscle weakness (generalized); R29.3 Abnormal posture; R26.2 Difficulty in walking, not elsewhere classified
CPT/HCPCS: 97110; 97112; 97140; 97162; 97530; 97535

== ENCOUNTER → 2024-04-21 09:21 | Outpatient (CLI) | payer BC, SELFPAY | PROVIDERS: Family Provider Family Medicine; PCP Family Medicine; Referring Provider Family Medicine; Visit Provider Family Medicine | DX: B82.9 Intestinal parasitism, unspecified (principal) | CPT/HCPCS: 87177 ==